=== PATIENT | male | born 1995 | race African-American/Black ===

== ENCOUNTER 2017-09-07 00:22 | Inpatient (IN) | payer MEDICAID, OTHER ==
--- NOTE | 2017-09-07 01:46 | ED ---
Altered Mental Status HPI - General Chief Complaint: Altered Mental Status Stated Complaint: altered mental status Time Seen by Provider: 09/07/17 00:54 Source: patient Mode of arrival: ambulatory Limitations: altered mental status - History of Present Illness Initial Comments: This patient is a 22-year-old man brought to be evaluated for what appears to be some delusional thought content. The patient is here with his and his [id number]. They relate that he has been describing seeing people who are not there, and describing people were working against him. In addition he states he had been up overnight, and he describes "pulling an all nighter," playing video games. The patient himself is without complaints. MD Complaint: other -: hour(s) Severity: moderate Consistency of Symptoms: constant - Related Data Previous Rx's Medication Instructions Recorded Ibuprofen [Motrin] 600 mg PO Q6HR PRN #20 tab 01/31/14 Allergies Allergy/AdvReac Type Severity Reaction Status Date / Time amoxicillin [Amoxicillin] AdvReac Unknown Verified 09/07/17 00:40 Penicillins AdvReac Unknown Verified 09/07/17 00:40 Review of Systems ROS Statement: Those systems with pertinent positive or pertinent negative responses have been documented in the HPI. ROS Other: All systems not noted in ROS Statement are negative. Constitutional: Denies: fever, chills, weakness Eyes: Denies: vision change Respiratory: Denies: cough, dyspnea Cardiovascular: Denies: chest pain, palpitations, syncope Gastrointestinal: Denies: abdominal pain, vomiting, diarrhea Genitourinary: Denies: dysuria Musculoskeletal: Denies: back pain Skin: Denies: rash Neurological: Denies: headache, weakness, numbness Psychiatric: Reports: anxiety, auditory hallucinations, visual hallucinations. Denies: homicidal thoughts, suicidal thoughts Past Medical History Past Medical History: No Reported History History of Any Multi-Drug Resistant Organisms: None Reported Past Surgical History: No Surgical Hx Reported Past Psychological History: No Psychological Hx Reported Smoking Status: Current every day smoker Past Alcohol Use History: Daily Past Drug Use History: Marijuana General Exam Limitations: altered mental status General appearance: alert, in no apparent distress Head exam: Present: atraumatic, normocephalic Eye exam: Present: normal appearance Neck exam: Present: normal inspection Respiratory exam: Present: normal lung sounds bilaterally. Absent: respiratory distress, wheezes, rales, rhonchi, stridor Cardiovascular Exam: Present: normal rhythm, tachycardia, normal heart sounds. Absent: systolic murmur, diastolic murmur, rubs, gallop GI/Abdominal exam: Present: soft. Absent: distended, tenderness, guarding, rebound, mass Extremities exam: Present: normal inspection, normal capillary refill. Absent: pedal edema, calf tenderness Back exam: Present: normal inspection. Absent: CVA tenderness (R), CVA tenderness (L) Neurological exam: Present: alert Psychiatric exam: Present: anxious, manic, other (Patient does display delusional thought content.). Absent: homicidal ideation, suicidal ideation Skin exam: Present: warm, dry, intact, normal color. Absent: rash Course Vital Signs 09/07/17 00:33 Temperature 98.4 F Pulse Rate 128 H Respiratory 22 Rate Blood Pressure 152/93 O2 Sat by Pulse 99 Oximetry Medical Decision Making - Lab Data Result diagrams: 09/07/17 01:10 09/07/17 01:10 Lab Results 09/07/17 09/07/17 09/07/17 Range/Units 01:10 01:10 01:30 WBC 13.1 H (3.8-10.6) k/uL RBC 5.49 (4.30-5.90) m/uL Hgb 15.6 (13.0-17.5) gm/dL Hct 46.6 (39.0-53.0) % MCV 84.9 (80.0-100.0) fL MCH 28.4 (25.0-35.0) pg MCHC 33.4 (31.0-37.0) g/dL RDW 13.2 (11.5-15.5) % Plt Count 242 (150-450) k/uL Neutrophils % 78 % Lymphocytes % 14 % Monocytes % 7 % Eosinophils % 1 % Basophils % 0 % Neutrophils # 10.3 H (1.3-7.7) k/uL Lymphocytes # 1.8 (1.0-4.8) k/uL Monocytes # 0.9 (0-1.0) k/uL Eosinophils # 0.1 (0-0.7) k/uL Basophils # 0.0 (0-0.2) k/uL Sodium 144 (137-145) mmol/L Potassium 4.5 (3.5-5.1) mmol/L Chloride 109 H (98-107) mmol/L Carbon Dioxide 22 (22-30) mmol/L Anion Gap 13 mmol/L BUN 19 (9-20) mg/dL Creatinine 0.80 (0.66-1.25) mg/dL Est GFR (CKD-EPI)AfAm >90 (>60 ml/min/1.73 sqM) Est GFR (CKD-EPI)NonAf >90 (>60 ml/min/1.73 sqM) Glucose 100 H (74-99) mg/dL Calcium 10.5 H (8.4-10.2) mg/dL Total Bilirubin 1.2 (0.2-1.3) mg/dL AST 35 (17-59) U/L ALT 31 (21-72) U/L Alkaline Phosphatase 77 (38-126) U/L Total Protein 8.4 H (6.3-8.2) g/dL Albumin 5.3 H (3.5-5.0) g/dL TSH 1.900 (0.465-4.680) mIU/L Urine Opiates Screen Not Detected (NotDetected) Ur Oxycodone Screen Not Detected (NotDetected) Urine Methadone Screen Not Detected (NotDetected) Ur Propoxyphene Screen Not Detected (NotDetected) Ur Barbiturates Screen Not Detected (NotDetected) U Tricyclic Antidepress Not Detected (NotDetected) Ur Phencyclidine Scrn Not Detected (NotDetected) Ur Amphetamines Screen Detected H (NotDetected) U Methamphetamines Scrn Detected H (NotDetected) U Benzodiazepines Scrn Not Detected (NotDetected) Urine Cocaine Screen Not Detected (NotDetected) U Marijuana (THC) Screen Detected H (NotDetected) Disposition Clinical Impression: Acute psychosis Disposition: ADMITTED IP TO THIS HOSP Condition: Fair Referrals: None,Stated [Primary Care Provider] - 1-2 days
[2017-09-07 01:52] LABS: Basophils % (A) 0 %; Eosinophils # (A) 0.1 k/uL (0-0.7); Eosinophils % (A) 1 %; HCT 46.6 % (39.0-53.0); HGB 15.6 gm/dL (13.0-17.5); Lymphocytes # (A) 1.8 k/uL (1.0-4.8); Lymphocytes % (A) 14 %; MCH 28.4 pg (25.0-35.0); MCHC 33.4 g/dL (31.0-37.0); MCV 84.9 fL (80.0-100.0); Mean Platelet Volume 7.3; Monocytes # (A) 0.9 k/uL (0-1.0); Monocytes % (A) 7 %; Neutrophils # (A) 10.3 k/uL (1.3-7.7); Neutrophils % (A) 78 %; Platelet Count 242 k/uL (150-450); RBC 5.49 m/uL (4.30-5.90); RDW 13.2 % (11.5-15.5); WBC 13.1 k/uL (3.8-10.6)
[2017-09-07 01:56] LABS: ALT 31 U/L (21-72); AST 35 U/L (17-59); Albumin 5.3 g/dL (3.5-5.0); Alkaline Phosphatase 77 U/L (38-126); Anion Gap 13 mmol/L; Blood Urea Nitrogen 19 mg/dL (9-20); Calcium 10.5 mg/dL (8.4-10.2); Carbon Dioxide 22 mmol/L (22-30); Chloride 109 mmol/L (98-107); Glucose 100 mg/dL (74-99); Potassium 4.5 mmol/L (3.5-5.1); Sodium 144 mmol/L (137-145); Total Bilirubin 1.2 mg/dL (0.2-1.3); Total Protein 8.4 g/dL (6.3-8.2)
[2017-09-07 02:00] LABS: Amphetamine Screen,Urine Detected (NotDetected); Barbiturate Screen,Urine Not Detected (NotDetected); Benzodiazepines Screen,Urine Not Detected (NotDetected); Cocaine Screen,Urine Not Detected (NotDetected); Methadone Screen, Urine Not Detected (NotDetected); Opiate Screen,Urine Not Detected (NotDetected); Oxycodone Screen, Urine Not Detected (NotDetected); Phencyclidine Screen,Urine Not Detected (NotDetected); Tricyclic Antidepressant,Urine Not Detected (NotDetected); Urn Cannabinoid Scrn Detected (NotDetected)
[2017-09-07] MEDS ORDERED: ZIPRASIDONE 20 MG CAP PO STA (02:22)
[2017-09-07] MEDS ORDERED: LORazepam 1 MG TAB PO STA (03:43)
[2017-09-07] MEDS ORDERED: MAGNESIUM HYDROXIDE 2,400 MG/10 ML CUP PO PRN (05:11)
[2017-09-07] MEDS ORDERED: ACETAMINOPHEN TAB 325 MG TAB PO PRN (05:11)
[2017-09-07] MEDS ORDERED: MAG HYDROX/AL HYDROX/SIMETH 30 ML CUP PO PRN (05:11)
[2017-09-07] MEDS ORDERED: ZIPRASIDONE 20 MG VIAL IM PRN (05:11)
[2017-09-07] MEDS ORDERED: LORazepam 2 MG/ML INJ IM PRN (05:13)
[2017-09-07] MEDS ORDERED: SODIUM CHLORIDE 0.9% 2,000 ML IV ONE (11:28)
[2017-09-07] MEDS ORDERED: SODIUM CHLORIDE 0.9% 1,000 ML IV SCH (11:30)
--- NOTE | 2017-09-07 11:31 | P.HPMEDMHU ---
History of Present Illness H&P Date: 09/07/17 The patient is a 32-year-old -Scott[place] male that was brought into the ER by his partner and her mother with increasing paranoia and psychosis. Apparently the patient is increasingly agitated in the ER point to people that were not there and saying that the police was out to get him, the patient had other visual hallucinations and on presentation was diaphoretic restless anxious disorganized manic with poor impulse control. The patient does report snoring mass 2 days ago but denied having a drug problem. For my exam the patient is a little less agitated and manic and is able to answer questions to the best of his knowledge, he reports a history of enlarged thyroid and was reportedly taking steroids intermittently for this. He denies any other medical issues denies any chest pain or shortness of breath but does report a nonproductive cough for 2 days he denies any fevers chills or night sweats. In the ER the patient had a conference a workup, but did not have a chest x-ray , his UDS was positive for methamphetamine and THC, he was also noted to have a leukocytosis of 13.1 Past Medical History Past Medical History: No Reported History History of Any Multi-Drug Resistant Organisms: None Reported Past Surgical History: No Surgical Hx Reported Past Psychological History: No Psychological Hx Reported Smoking Status: Current every day smoker Past Alcohol Use History: Daily Past Drug Use History: Marijuana Medications and Allergies Home Medications Medication Instructions Recorded Confirmed Type Ibuprofen [Motrin] 600 mg PO Q6HR PRN #20 tab 01/31/14 Rx Allergies Allergy/AdvReac Type Severity Reaction Status Date / Time amoxicillin [Amoxicillin] AdvReac Unknown Verified 09/07/17 00:40 Penicillins AdvReac Unknown Verified 09/07/17 00:40 Physical Exam Vitals: Vital Signs Temp Pulse Pulse Resp BP BP Pulse Ox 09/07/17 05:34 97.6 F 109 H 18 129/60 94 L 09/07/17 05:09 116 H 18 100 09/07/17 05:01 97.9 F 130 H 18 139/62 94 L 09/07/17 00:33 98.4 F 128 H 22 152/93 99 Intake and Output 09/06/17 09/07/17 09/07/17 22:59 06:59 14:59 Other: Weight 86.183 kg 82.7 kg Constitutional: No acute distress, agitated, bloodshot eyes, diaphoretic Eyes: Anicteric sclerae, moist conjunctiva, no lid-lag, PERRLA ENMT: NC/AT,Oropharynx clear, no erythema, exudates Neck:Supple, FROM, no masses, or JVD, No carotid bruits; No thyromegaly Lungs: Clear to auscultation, Clear to percussion, Normal respiratory effort, no accessory muscle use Cardiovascular: Regular rhythm tachycardic, No murmurs, gallops, or rubs no peripheral edema Abdominal: Soft Nontender, nom distended, no guarding, no rebound or rigidity, Normoactive bowel sounds No hepatomegaly, No splenomegaly, No palpable mass No abdominal wall hernia noted Skin: Normal temperature, tone, texture, turgor, No induration No subcutaneous nodules, No rash, lesions, No ulcers Extremities:No digital cyanosis No clubbing, Pedal pulses intact and symmetrical Radial pulses intact and symmetrical Normal gait and station, No calf tenderness Psychiatric: Oriented to place and time and person, poor judgment, impulsive, fidgety agitated, disheveled, reporting auditory or visual hallucinations Neuro: Muscles Strength 5/5 in all 4 extremities, Sensation to light touch grossly present throughout, Cranial nerves II-XII grossly intact. No focal sensory deficits Cranial Nerve Examination - Cranial Nerves Cranial Nerve II- Optic: Intact Cranial Nerve III- Oculomotor: Intact Cranial Nerve IV- Trochlear: Intact Cranial Nerve V- Trigeminal: Intact Cranial Nerve - Abducens: Intact Cranial Nerve VII- Facial: Intact Cranial Nerve VIII- Auditory: Intact Cranial Nerve IX- Glossopharyngeal: Intact Cranial Nerve X- Vagus: Intact Cranial Nerve XI- Accessory: Intact Cranial Nerve XII- Hypoglossal: Intact Results CBC & Chem 7: 09/07/17 01:10 09/07/17 01:10 Labs: Abnormal Lab Results - Last 24 Hours (Table) 09/07/17 09/07/17 09/07/17 Range/Units 01:10 01:10 01:30 WBC 13.1 H (3.8-10.6) k/uL Neutrophils # 10.3 H (1.3-7.7) k/uL Chloride 109 H (98-107) mmol/L Glucose 100 H (74-99) mg/dL Calcium 10.5 H (8.4-10.2) mg/dL Total Protein 8.4 H (6.3-8.2) g/dL Albumin 5.3 H (3.5-5.0) g/dL Ur Amphetamines Screen Detected H (NotDetected) U Methamphetamines Scrn Detected H (NotDetected) U Marijuana (THC) Screen Detected H (NotDetected) Assessment and Plan (1) Acute psychosis Current Visit: Yes Status: Acute Code(s): F23 - BRIEF PSYCHOTIC DISORDER SNOMED Code(s): 40335013 (2) Methamphetamine intoxication Current Visit: Yes Status: Acute Code(s): F15.929 - OTHER STIMULANT USE, UNSP WITH INTOXICATION, UNSPECIFIED SNOMED Code(s): 13118541267724084 (3) Leukocytosis Current Visit: Yes Status: Acute Code(s): D72.829 - ELEVATED WHITE BLOOD CELL COUNT, UNSPECIFIED SNOMED Code(s): 621749829 (4) Cough Current Visit: Yes Status: Acute Code(s): R05 - COUGH SNOMED Code(s): 11904983 Plan: The patient is admitted to the mental health unit with acute psychosis, etienne and agitation likely triggered by methamphetamine intoxication. We will plan to the for to primary psychiatric team regarding ongoing psychotropic medications, monitoring and possible CBT therapy. Medically speaking the patient appears stable, but is clearly showing signs of methamphetamine toxemia as he is tachycardic and diaphoretic. We'll plan to check a chest x-ray to rule out pneumonia as a patient does have a mild leukocytosis (which could also be secondary to methamphetamine use ). We'll start the patient on fluids and recheck his labs tomorrow. I appreciate the opportunity to be involved ongoing care of this patient . For further questions or concerns please do not hesitate to contact this time patient team
--- NOTE | 2017-09-07 12:51 | P.HP ---
Psychiatric H&P - . H&P Date: 09/07/17 History & Physical: Allergies Allergy/AdvReac Type Severity Reaction Status Date / Time amoxicillin [Amoxicillin] AdvReac Unknown Verified 09/07/17 00:40 Penicillins AdvReac Unknown Verified 09/07/17 00:40 Vital Signs Temp 97.6 F 09/07/17 05:34 Pulse 109 H 09/07/17 05:34 Resp 18 09/07/17 05:34 BP 129/60 09/07/17 05:34 Pulse Ox 94 L 09/07/17 05:34 Intake & Output 09/06/17 09/07/17 09/07/17 18:59 06:59 18:59 Weight 86.183 kg 82.7 kg Laboratory Last Values WBC 13.1 k/uL (3.8-10.6) H 09/07/17 01:10 RBC 5.49 m/uL (4.30-5.90) 09/07/17 01:10 Hgb 15.6 gm/dL (13.0-17.5) 09/07/17 01:10 Hct 46.6 % (39.0-53.0) 09/07/17 01:10 MCV 84.9 fL (80.0-100.0) 09/07/17 01:10 MCH 28.4 pg (25.0-35.0) 09/07/17 01:10 MCHC 33.4 g/dL (31.0-37.0) 09/07/17 01:10 RDW 13.2 % (11.5-15.5) 09/07/17 01:10 Plt Count 242 k/uL (150-450) 09/07/17 01:10 Neutrophils % 78 % 09/07/17 01:10 Lymphocytes % 14 % 09/07/17 01:10 Monocytes % 7 % 09/07/17 01:10 Eosinophils % 1 % 09/07/17 01:10 Basophils % 0 % 09/07/17 01:10 Neutrophils # 10.3 k/uL (1.3-7.7) H 09/07/17 01:10 Lymphocytes # 1.8 k/uL (1.0-4.8) 09/07/17 01:10 Monocytes # 0.9 k/uL (0-1.0) 09/07/17 01:10 Eosinophils # 0.1 k/uL (0-0.7) 09/07/17 01:10 Basophils # 0.0 k/uL (0-0.2) 09/07/17 01:10 Sodium 144 mmol/L (137-145) 09/07/17 01:10 Potassium 4.5 mmol/L (3.5-5.1) 09/07/17 01:10 Chloride 109 mmol/L (98-107) H 09/07/17 01:10 Carbon Dioxide 22 mmol/L (22-30) 09/07/17 01:10 Anion Gap 13 mmol/L 09/07/17 01:10 BUN 19 mg/dL (9-20) 09/07/17 01:10 Creatinine 0.80 mg/dL (0.66-1.25) 09/07/17 01:10 Est GFR (CKD-EPI)AfAm >90 (>60 ml/min/1.73 sqM) 09/07/17 01:10 Est GFR (CKD-EPI)NonAf >90 (>60 ml/min/1.73 sqM) 09/07/17 01:10 Glucose 100 mg/dL (74-99) H 09/07/17 01:10 Calcium 10.5 mg/dL (8.4-10.2) H 09/07/17 01:10 Total Bilirubin 1.2 mg/dL (0.2-1.3) 09/07/17 01:10 AST 35 U/L (17-59) 09/07/17 01:10 ALT 31 U/L (21-72) 09/07/17 01:10 Alkaline Phosphatase 77 U/L (38-126) 09/07/17 01:10 Total Protein 8.4 g/dL (6.3-8.2) H 09/07/17 01:10 Albumin 5.3 g/dL (3.5-5.0) H 09/07/17 01:10 TSH 1.900 mIU/L (0.465-4.680) 09/07/17 01:10 Urine Opiates Screen Not Detected (NotDetected) 09/07/17 01:30 Ur Oxycodone Screen Not Detected (NotDetected) 09/07/17 01:30 Urine Methadone Screen Not Detected (NotDetected) 09/07/17 01:30 Ur Propoxyphene Screen Not Detected (NotDetected) 09/07/17 01:30 Ur Barbiturates Screen Not Detected (NotDetected) 09/07/17 01:30 U Tricyclic Antidepress Not Detected (NotDetected) 09/07/17 01:30 Ur Phencyclidine Scrn Not Detected (NotDetected) 09/07/17 01:30 Ur Amphetamines Screen Detected (NotDetected) H 09/07/17 01:30 U Methamphetamines Scrn Detected (NotDetected) H 09/07/17 01:30 U Benzodiazepines Scrn Not Detected (NotDetected) 09/07/17 01:30 Urine Cocaine Screen Not Detected (NotDetected) 09/07/17 01:30 U Marijuana (THC) Screen Detected (NotDetected) H 09/07/17 01:30 09/07/17 12:48 Identifying Information 22 year old male, single has one year, 2month old daughter. He lives with his new girlfriend in an apartment. 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 Chief complaint My ex-girlfriends mother tricked me into coming to the hospital History of presenting illness Patient was petitioned by his ex-friends mother. Per petition patient was seeing things that are not there, became so paranoid that he was climbing trees. Patients father states patient is convinced people were following him and watching him which was not true. Patient states he was passenger in the car and his ex-girlfriends mother was driving the car. He claims to have seen people hiding in the bushes dressed like army personnel. He stated that those people were camouflaged, carrying rifles and were following him every where he goes. He reports seeing them through the window of his room. He also reports seeing their shadows inside his room in the hospital. He currently states this was all a mistake and his ex-girlfriends mother felt he was high on drugs and was seeing things. He says he is not sick and is not seeing things. He says he has a job lined up at a [employer] and is supposed to go to his job tomorrow. He says he needs money and was wondering if he could be released today. He stated he did not want to be hospitalized. Reportedly he ran out of the emergency room yesterday and security was able to trace him and brought him back. Per staff he jumped into the river after he ran out of the emergency room. Patient reports he is currently on a hernandez. He is concerned that he might be taken [facility] for violating his hernandez. He claims to have snorted two lines of methamphetamine three days ago. He states this is the second time he had used meth. He states his first use of meth was an year ago. He also reports to have smoked marijuana three days ago. He denies current auditory hallucinations. He reports feeling sad and hopeless about being in the hospital. He is also concerned about not being able to go his job tomorrow. He denies current suicidal or homicidal ideations. He reports good sleep and appetite. He denies symptoms of etienne. Past psychiatric history None reported Substance use history Reports use of marijuana from the age of 11yrs. He reports smoking two joints of marijuana/day twice a week. His last use was three days ago. He reports to have use methamphetamine twice in his entire life, first time at the age of 20 and recently three days ago. Legal problems [facility] 2016 with domestic assault charges. On [place] hernandez currently. Family psychiatric treatment history Denies Medical history None reported. Allergies Pencillin and amoxicillin Social history Born in [place], [place]. Raised by grandparents. He states his parents were horrible. He states his dad was never around and claims his mother is currently in penitentiary. He denies childhood history of abuse. He has five sisters and two brothers. Reports to have completed highschool. He reports to have attended two years of college in [place]. He claims to have studied commercial diving. He reports to have worked as a commercial loan processor for three years in [facility] [employer]. He claims to have lived in [facility]. He states he moved back to [place] in December 2016 to be closer to his daughter. Mental status exam 22 year old male. He is dressed in hospital gown. He appeared in fair grooming and hygiene. He maintains good eye contact. No abnormal movements noted. His speech and thought process are goal directed. His mood is reported as sad and affect appropriate. He is paranoid and has visual hallucinations. He denies auditory hallucinations. He is alert and oriented X 4. He denies current suicidal or homicidal ideations. His insight and judgment are poor. Diagnosis Methamphtamine abuse, methamphetamine induced psychosis Marijuana abuse Plan 22-year-old male admitted through emergency department for acute psychosis. He was admitted on a petition and clinical cert. Medicine consult for initial history and physical examination psychosocial evaluation. Monitor for symptoms without medications. If his symptoms doesnt subside consider starting antipsychotics tomorrow. Will complete second clinical cert today will receive milieu therapy group therapy individual therapy occupational therapy recreational therapy and psychoeducation Treatment goals: Monitor for symptoms/progress Social work to assist with discharge Insight improvement and development of better coping skills Substance use counseling/Groups Treatment goals: will continue to be free of symptoms
--- NOTE | 2017-09-07 14:09 | XR ---
EXAMINATION TYPE: XR chest 2V DATE OF EXAM: 09/07/2017 HISTORY: cough and leukocytosis. REFERENCE: Previous study dated 11/05/2012. FINDINGS: The lungs are clear. Pleural spaces are clear. The heart is not enlarged. IMPRESSION: NORMAL CHEST.
[2017-09-07] MEDS: LORazepam 1 MG TAB PO PRN (15:36)
[2017-09-07] MEDS ORDERED: WATER FOR INJECTION, STERILE 10 ML IV ONE ×2 (17:33→19:57)
[2017-09-07] MEDS ORDERED: ZIPRASIDONE 20 MG VIAL IM ONE ×2 (17:33→19:57)
--- NOTE | 2017-09-08 10:05 | P.PN ---
Progress Note - Text Interval history: The patient is found in his room he follows me to an interview room. The psychiatric evaluation note was reviewed. The patient states that he was tricked into coming to the mental health unit and was petition by his girlfriend's mother. He states he does not need to be here is quite upset that this will cause him significant financial distress. In reviewing the charting the patient felt that he was being tracked by the drug task force dressed as personnel. He states even yesterday there were to people on this mental health unit dressed in fatigues. Upon presentation to the hospital he did have methamphetamine and marijuana in his system. He states he does not use this often. Mental status exam: The patient is an -[place] male appearing his stated age. He seated calmly in the chair he is dressed in T-shirt and shorts. He has a large scar visible on his right knee. He reports his mood as stressed. He continues to state that he was being tracked by the drug task force and feels that there may have been personnel on this mental health unit as well. He is reporting no suicidal or homicidal thoughts. Thought process is circumstantial at times infrequently tangential. He demonstrates no verbal or physical aggressiveness. His affect is dysphoric but he is not tearful. He is oriented to person place and date. He demonstrates no abnormal involuntary movements. He is endorsing no auditory or visual hallucinations. It is clear that he is trying to minimize symptoms to facilitate a discharge. Plan: It would appear that the patient's presenting with methamphetamine induced psychosis. I will confer with the treatment team regarding any further collateral information. We will monitor him for safety. We will monitor for need of a prescribed antipsychotic. He is encouraged to participate in the milieu. Vital signs reviewed. He does have a history of alcohol use and we are monitoring for withdrawal symptoms.
[2017-09-08] MEDS: LORazepam 1 MG TAB PO PRN (22:27)
[2017-09-09] MEDS: LORazepam 1 MG TAB PO PRN ×2 (10:44→20:50)
--- NOTE | 2017-09-09 10:59 | P.PN ---
Progress Note - Text Interval history: The patient is found in his room he follows me to an interview room. He reports that he slept most of the day yesterday and that was helpful. He feels that his symptoms of psychosis are beginning to resolve. He feels that the methamphetamine likely induced his current symptoms. Staff reported that he only attended 2 groups yesterday. It appeared last evening he may have still been hallucinating as he was looking out of the window for police or personnel. Mental status exam: The patient is alert he seated calmly he is cooperative. He reports no acute symptoms of psychosis this morning. He feels that his thought process is becoming more linear. He denies having any hallucinations at this time. He feels safe on the mental health unit. He has spontaneous speech that is nonpressured. He demonstrates no verbal or physical aggressiveness. He is reporting no suicidal or homicidal ideation. He is following the conversation better compared to yesterday. Insight and judgment improving. Plan: The patient will be observed for another 24 hours. We anticipate discharging him tomorrow if he demonstrates sufficient clinical improvement/ stability. Vital signs reviewed. He is encouraged to fully participate in the milieu.
[2017-09-10 07:14] VITALS: BP 165/79; PULSE 81; RESP 18; TEMP 98
--- NOTE | 2017-09-10 09:22 | P.DS ---
Providers Date of admission: 09/07/17 05:03 Expected date of discharge: 09/10/17 Attending physician: Riki Gleason Consults: 09/07/17 05:11 Consult Physician Routine Consulting Provider: Bernarda Perez Consult Reason/Comments: Medical managment Do you want consulting provider notified?: Yes Primary care physician: Stated None - Discharge Diagnosis(es) (1) Methamphetamine-induced psychotic disorder Current Visit: Yes Status: Acute Priority: High (2) Methamphetamine use disorder, moderate Current Visit: Yes Status: Acute Priority: High (3) Cannabis use disorder, moderate, dependence Current Visit: Yes Status: Acute Priority: Medium Hospital Course: This patient is a 22-year-old -[place] male who was admitted to the mental health unit with acute psychosis in the context of using methamphetamine. He was petition by his ex-girlfriend's mother as the patient was acutely paranoid and was demonstrating bizarre behavior. The patient felt that he was being followed and felt unsafe. For full details please refer to the psychiatric evaluation dictated 09/07/2017. Summary of hospital course: The patient was admitted to the mental health unit in voluntarily. A second clinical certificate was completed. A deferral conference was held and the patient did ultimately defer. He did not wish to have psychiatric medication prescribed. During the course of his stay his psychosis resolved. He was able to sleep and appetite normalized. Thought process became more linear and he no longer demonstrated signs of psychosis. He was seen by internal medicine for routine history and physical exam. The patient participated minimally in groups. He demonstrated no agitated behavior. We discussed his use of substances he does not feel that he requires inpatient chemical dependency treatment and does not wish to have any medication prescribed to address his substance use. Mental status exam: The patient is alert he seated calmly. Today he is dressed in hospital attire. Hygiene and grooming are good. He is pleasant and cooperative. Speech is fluent spontaneous nonpressured. Thought process is linear he demonstrates no tangential thinking loose associations or flight of ideas. He is reporting no auditory or visual hallucinations he endorses no specific delusions. There is no observed evidence of psychosis. Insight and judgment improved. He demonstrates no verbal or physical aggressiveness he demonstrates no abnormal involuntary movements. He remains oriented to person place and date. He is able to demonstrate an appropriate range of affect. He denies having any suicidal or homicidal ideation intent or plan. Impressions 1. Methamphetamine induced psychotic disorder, methamphetamine use disorder, cannabis use disorder 2. Legal interaction with court date on October 08 Plan: The patient will be discharged from the mental health unit today. He no longer demonstrate symptoms of psychosis. He is capable of meeting his activities of daily living, he has not reported any thoughts of harming himself or others. He does not wish to take a psychotropic medication and he does not require one at this time. He has signed a deferral agreement and we explained the implications of that decision. He is instructed to abstain from any use of alcohol marijuana or illicit drugs as they will elevate his safety risk. There is no imminent safety risk he is appropriate for transfer back to outpatient care. Social work will arrange his outpatient follow-up. Again he does not wish to participate in inpatient chemical dependency treatment and does not wish to have medication prescribed to address substance use. He is instructed to return to the hospital any acute safety concerns. Patient Condition at Discharge: Stable Plan - Discharge Summary New Discharge Prescriptions: Discontinued Ibuprofen [Motrin] 600 mg PO Q6HR PRN #20 tab PRN Reason: Pain Follow up Appointment(s)/Referral(s): None,Stated [Primary Care Provider] - 1-2 days
== END 2017-09-10 11:37 | disposition home or self-care (01) | DRG 897 ==
LOC: EC 00:22 → 3MHU 05:03
PROVIDERS: ADMIT Psychiatry & Neurology Psychiatry; ATTEND Psychiatry & Neurology Psychiatry
DX: F15.259 Other stimulant dependence with stimulant-induced psychotic disorder, unspecified (principal); F12.20 Cannabis dependence, uncomplicated; F17.200 Nicotine dependence, unspecified, uncomplicated; Z65.3 Problems related to other legal circumstances; D72.829 Elevated white blood cell count, unspecified; R05 Cough; Z88.0 Allergy status to penicillin
CPT/HCPCS: 36415; 71046; 80053; 80306; 82075; 84443; 85025; 93005; 99285

== ENCOUNTER 2017-12-03 08:25 | Inpatient (IN) | payer MEDICAID, OTHER ==
--- NOTE | 2017-12-03 09:02 | ED ---
Psych HPI - General Chief Complaint: Psychiatric Symptoms Stated Complaint: altered mental status Time Seen by Provider: 12/03/17 08:28 Source: patient, EMS, RN notes reviewed Mode of arrival: EMS Limitations: no limitations - History of Present Illness Initial Comments: 22-year-old male presents emergency Department via EMS for psychiatric evaluation. Patient reportedly uses meth 2 days ago is still paranoid, hallucinating. Patient is being petition by father secondary to his drug abuse. Patient has no complaints he denies suicidal homicidal ideation. Denies any alcohol abuse. He does admit to marijuana use also. Patient has no physical complaints including chest pain, shortness breath, headache, dizziness , nausea vomiting diarrhea constipation. Patient states he has never been admitted for drug abuse in the past. - Related Data Home Medications Medication Instructions Recorded Confirmed Unable To Assess [Unable to Assess] 12/03/17 12/03/17 Allergies Allergy/AdvReac Type Severity Reaction Status Date / Time amoxicillin [Amoxicillin] AdvReac Unknown Verified 09/07/17 00:40 Penicillins AdvReac Unknown Verified 09/07/17 00:40 Review of Systems ROS Statement: Those systems with pertinent positive or pertinent negative responses have been documented in the HPI. ROS Other: All systems not noted in ROS Statement are negative. Past Medical History Past Medical History: No Reported History History of Any Multi-Drug Resistant Organisms: None Reported Past Surgical History: No Surgical Hx Reported Past Psychological History: No Psychological Hx Reported Smoking Status: Current every day smoker Past Alcohol Use History: Daily Past Drug Use History: Marijuana General Exam Limitations: altered mental status General appearance: alert, in no apparent distress Head exam: Present: atraumatic, normocephalic, normal inspection Eye exam: Present: normal appearance, PERRL, EOMI. Absent: scleral icterus, conjunctival injection, periorbital swelling ENT exam: Present: normal exam, normal oropharynx, mucous membranes moist, TM's normal bilaterally, normal external ear exam Neck exam: Present: normal inspection, full ROM. Absent: tenderness, meningismus, lymphadenopathy Respiratory exam: Present: normal lung sounds bilaterally. Absent: respiratory distress, wheezes, rales, rhonchi, stridor Cardiovascular Exam: Present: regular rate, normal rhythm, normal heart sounds. Absent: systolic murmur, diastolic murmur, rubs, gallop, clicks GI/Abdominal exam: Present: soft, normal bowel sounds. Absent: distended, tenderness, guarding, rebound, rigid Neurological exam: Present: alert, oriented X3, CN II-XII intact, reflexes normal. Absent: motor sensory deficit Psychiatric exam: Present: anxious, other (Patient is paranoid) Skin exam: Present: warm, dry, intact, normal color. Absent: rash Course Vital Signs 12/03/17 12/03/17 08:50 09:00 Temperature 98.1 F Pulse Rate 80 Respiratory 20 Rate Blood Pressure 155/122 O2 Sat by Pulse 96 Oximetry Medical Decision Making - Lab Data Lab Results 12/03/17 Range/Units 11:34 Urine Opiates Screen Not Detected (NotDetected) Ur Oxycodone Screen Not Detected (NotDetected) Urine Methadone Screen Not Detected (NotDetected) Ur Propoxyphene Screen Not Detected (NotDetected) Ur Barbiturates Screen Not Detected (NotDetected) U Tricyclic Antidepress Not Detected (NotDetected) Ur Phencyclidine Scrn Not Detected (NotDetected) Ur Amphetamines Screen Detected H (NotDetected) U Methamphetamines Scrn Detected H (NotDetected) U Benzodiazepines Scrn Not Detected (NotDetected) Urine Cocaine Screen Not Detected (NotDetected) U Marijuana (THC) Screen Detected H (NotDetected) Disposition Clinical Impression: Methamphetamine use disorder, moderate, Acute psychosis Disposition: TRANSFER TO PSYCH HOSP/UNIT Condition: Stable Referrals: None,Stated [Primary Care Provider] - 1-2 days
[2017-12-03] MEDS ORDERED: LORazepam 2 MG/ML INJ IM STA (11:33)
[2017-12-03] MEDS ORDERED: ZIPRASIDONE 20 MG VIAL IM STA (11:33)
[2017-12-03 11:53] LABS: Amphetamine Screen,Urine Detected (NotDetected); Barbiturate Screen,Urine Not Detected (NotDetected); Benzodiazepines Screen,Urine Not Detected (NotDetected); Cocaine Screen,Urine Not Detected (NotDetected); Methadone Screen, Urine Not Detected (NotDetected); Opiate Screen,Urine Not Detected (NotDetected); Oxycodone Screen, Urine Not Detected (NotDetected); Phencyclidine Screen,Urine Not Detected (NotDetected); Tricyclic Antidepressant,Urine Not Detected (NotDetected); Urn Cannabinoid Scrn Detected (NotDetected)
[2017-12-03] MEDS ORDERED: MAG HYDROX/AL HYDROX/SIMETH 30 ML CUP PO PRN (12:17)
[2017-12-03] MEDS ORDERED: ACETAMINOPHEN TAB 325 MG TAB PO PRN (12:17)
[2017-12-03] MEDS ORDERED: MAGNESIUM HYDROXIDE 2,400 MG/10 ML CUP PO PRN (12:17)
[2017-12-03 14:37] VITALS: BMI 25.4
--- NOTE | 2017-12-03 14:39 | P.HP ---
Psychiatric H&P - . H&P Date: 12/03/17 History & Physical: IDENTIFYING DATA: The patient is a 22-year-old -[place] male brought to the emergency room by the police and his father. HISTORY OF PRESENT ILLNESS: According to his father the patient called the police stating that he was being doped. The police went to his father's home and they did not find drugs. Due to his agitation and paranoia the police brought him to the emergency room. In the emergency room he was agitated and paranoid. He attempted to elope from the emergency room and his management required intramuscular Ativan and Geodon. He presented to unit involuntarily. He was markedly sedated and unable to participate in an assessment. He was laying in bed and would open his eyes briefly when we shook him awake. According to information from medical record he has a history of methamphetamine use disorder. His urine drug screen was positive for amphetamines, methamphetamines and marijuana. PAST PSYCHIATRIC HISTORY: This is second admission to our psychiatric unit; the last was in August 2017. He presented with acute onset of paranoia and agitation in the context of abuse of methamphetamine. That admission was involuntary and he deferred the probate hearing. 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 No psychotropic medications were prescribed at discharge. PAST MEDICAL HISTORY: He has no history of major medical illnesses. ALLERGIES: Amoxicillin, penicillins. SUBSTANCE USE HISTORY: According to information from the prior admission he has a history of marijuana use since she he was 11 years old. He alleged that he used methamphetamine twice prior to the last admission. FAMILY PSYCHIATRIC/SUBSTANCE USE HISTORY: There is no family history of mental health disorders. LEGAL HISTORY: He was in long term in August 2016 for charges of domestic assault. SOCIAL HISTORY: His born in [facility] and raised by his grandparents. His mother is in fci. He denied a history of childhood abuse. He has 5 sisters and 2 brothers. He graduated from high school. He lived in [place] until December 2016 to be closer to his daughter. MENTAL STATUS EXAM: He presented as a markedly sedated young -[place] male who would not cooperate with the psychiatric assessment. STRENGTHS: Stable housing. WEAKNESSES: Substance use disorder. IMPRESSION: He is a 22-year-old [place] male admitted to the psychiatric unit with acute onset of paranoia and agitation the context of use of methamphetamine. This is the second admission for same within the last 12 months. He is markedly sedated and uncooperative. He should be treated on an inpatient basis with combination of psychopharmacology and multimodal therapy. We will submit a demand for hearing to proceed with involuntary hospitalization. PRINCIPLE DIAGNOSIS: Methamphetamine induced psychotic disorder, methamphetamine use disorder RECOMMENDATION: Admit to the psychiatric unit. Safety precautions. Lorazepam and Geodon IM when necessary for agitation. Obtain collateral information from family. Consult medicine for initial physical exam and medical history. Reassess when he is less sedated. 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 Encourage participation as tolerated in therapeutic groups and activities. Evaluate clinical status response to treatment on a daily basis. Allergies Allergy/AdvReac Type Severity Reaction Status Date / Time amoxicillin [Amoxicillin] AdvReac Unknown Verified 09/07/17 00:40 Penicillins AdvReac Unknown Verified 09/07/17 00:40 Vital Signs Temp 98.0 F 12/03/17 14:12 Pulse 109 H 12/03/17 14:12 Resp 18 12/03/17 14:12 BP 111/75 12/03/17 14:12 Pulse Ox 99 12/03/17 12:20 Intake & Output 12/02/17 12/03/17 12/03/17 18:59 06:59 18:59 Weight 85.275 kg Laboratory Last Values Urine Opiates Screen Not Detected (NotDetected) 12/03/17 11:34 Ur Oxycodone Screen Not Detected (NotDetected) 12/03/17 11:34 Urine Methadone Screen Not Detected (NotDetected) 12/03/17 11:34 Ur Propoxyphene Screen Not Detected (NotDetected) 12/03/17 11:34 Ur Barbiturates Screen Not Detected (NotDetected) 12/03/17 11:34 U Tricyclic Antidepress Not Detected (NotDetected) 12/03/17 11:34 Ur Phencyclidine Scrn Not Detected (NotDetected) 12/03/17 11:34 Ur Amphetamines Screen Detected (NotDetected) H 12/03/17 11:34 U Methamphetamines Scrn Detected (NotDetected) H 12/03/17 11:34 U Benzodiazepines Scrn Not Detected (NotDetected) 12/03/17 11:34 Urine Cocaine Screen Not Detected (NotDetected) 12/03/17 11:34 U Marijuana (THC) Screen Detected (NotDetected) H 12/03/17 11:34 12/03/17 14:25
--- NOTE | 2017-12-03 17:59 | P.HPMEDMHU ---
History of Present Illness H&P Date: 12/03/17 Chief Complaint: hallucination Patient is a 22-year-old male with a past medical history of chronic methamphetamine abuse, tobacco abuse, and possible alcohol abuse who presented to the ER with hallucinations. He was petitioned by his family is concern for his drug abuse. He received Geodon and Ativan in the ER and was subsequently admitted to the mental health unit. Patient seen and examined at bedside. He is very lethargic after receiving Ativan and Geodon. He falls asleep frequently. He denies any recent cough, cold, fever, flu, nausea, or vomiting. He is unclear as whether he is having diarrhea or constipation. Exam is very limited secondary to patient's lethargy and repeatedly needed to wake patient up, thorough record review preformed including records from ED and nursing notes. He states he is feeling better than when he came in. Review of Systems ROS unobtainable: due to mental status Past Medical History Past Medical History: No Reported History History of Any Multi-Drug Resistant Organisms: None Reported Past Surgical History: No Surgical Hx Reported Past Anesthesia/Blood Transfusion Reactions: No Reported Reaction Smoking Status: Current every day smoker Past Drug Use History: Methamphetamine Additional History: Petitioned by father due to drug use Medications and Allergies Home Medications Medication Instructions Recorded Confirmed Type No Known Home Medications 12/03/17 12/03/17 History Allergies Allergy/AdvReac Type Severity Reaction Status Date / Time amoxicillin [Amoxicillin] AdvReac Unknown Verified 09/07/17 00:40 Penicillins AdvReac Unknown Verified 09/07/17 00:40 Physical Exam Osteopathic Statement: *. No significant issues noted on an osteopathic structural exam other than those noted in the History and Physical/Consult. Vitals: Vital Signs Temp Pulse Pulse Resp BP BP Pulse Ox 12/03/17 14:29 98.0 F 109 H 20 111/75 12/03/17 14:12 98.0 F 109 H 18 111/75 12/03/17 12:20 98.0 F 80 18 124/74 99 12/03/17 09:00 98.1 F 12/03/17 08:50 80 20 155/122 96 Intake and Output 12/03/17 12/03/17 12/03/17 06:59 14:59 22:59 Other: Weight 82.611 kg General: non toxic, lethargic, appears at stated age, normal weight Derm: no unusual rashes/lesions no unusual ecchymoses, warm, dry Head: atraumatic, normocephalic, symmetric Eyes: EOMI, no lid lag, anicteric sclera, pupils equal round reactive to light ENT: Nose and ears atraumatic, no thrush, no pharyngeal erythema Neck: No thyromegaly, no cervical lymphadenopathy, trachea midline, supple Mouth: no lip lesion, mucus membranes moist Cardiovascular: S1S2 reg, no murmur, positive posterior tibial pulse bilateral, no edema, capillary refill less than 2 seconds Lungs: Decreased breath sounds bilateral bases, no rhonchi, no rales , no accessory muscle use Abdominal: soft, nontender to palpation, no guarding, no appreciable organomegaly, normal bowel sounds Ext: no gross muscle atrophy, muscle strength 5 out of 5 in all 4 extremities grossly, no contractures, Neuro: CN II-XI grossly intact, light touch intact all 4 extremities, finger to nose within normal limits, Psych: Alert, oriented, lethargic Cranial Nerve Examination - Cranial Nerves Cranial Nerve II- Optic: Intact Cranial Nerve III- Oculomotor: Intact Cranial Nerve IV- Trochlear: Intact Cranial Nerve V- Trigeminal: Intact Cranial Nerve - Abducens: Intact Cranial Nerve VII- Facial: Intact Cranial Nerve VIII- Auditory: Intact Cranial Nerve IX- Glossopharyngeal: Intact Cranial Nerve X- Vagus: Intact Cranial Nerve XI- Accessory: Intact Cranial Nerve XII- Hypoglossal: Intact Results Labs: Abnormal Lab Results - Last 24 Hours (Table) 12/03/17 Range/Units 11:34 Ur Amphetamines Screen Detected H (NotDetected) U Methamphetamines Scrn Detected H (NotDetected) U Marijuana (THC) Screen Detected H (NotDetected) Thrombosis Risk Factor Assmnt - DVT/VTE Prophylaxis DVT/VTE Prophylaxis: Low risk, early ambulation encouraged - Choose All That Apply Any of the Below Risk Factors Present?: No Other Risk Factors: No Other congenital or acquired thrombophilia - If yes, enter type in comment: No Thrombosis Risk Factor Assessment Level: Very Low Risk Assessment and Plan Assessment: Tobacco abuse -Cessation -Nicotine replacement Methamphetamine abuse -Cessation Hallucinations -Your psych management -Check TSH and CMP, urinalysis, and CBC Thank you for allowing us to participate in the care of this patient. We will follow peripherally. Do not hesitate to contact us with questions. Someone can be reached from the [facility] hospitalist group at all hours of the day at [phone].
[2017-12-04] MEDS: LORazepam 1 MG TAB PO PRN ×2 (02:45→22:50)
[2017-12-04] MEDS ORDERED: LORazepam 2 MG/ML INJ IM PRN (03:19)
[2017-12-04] MEDS: ZIPRASIDONE 20 MG VIAL IM PRN (03:31)
[2017-12-04 09:19] LABS: Basophils % (A) 0 %; Eosinophils # (A) 0.1 k/uL (0-0.7); Eosinophils % (A) 1 %; HCT 47.5 % (39.0-53.0); HGB 15.8 gm/dL (13.0-17.5); Lymphocytes # (A) 3.3 k/uL (1.0-4.8); Lymphocytes % (A) 39 %; MCH 29.2 pg (25.0-35.0); MCHC 33.2 g/dL (31.0-37.0); MCV 87.9 fL (80.0-100.0); Mean Platelet Volume 7.2; Monocytes # (A) 0.5 k/uL (0-1.0); Monocytes % (A) 7 %; Neutrophils # (A) 4.2 k/uL (1.3-7.7); Neutrophils % (A) 51 %; Platelet Count 242 k/uL (150-450); RBC 5.41 m/uL (4.30-5.90); WBC 8.3 k/uL (3.8-10.6)
[2017-12-04 09:39] LABS: ALT 22 U/L (21-72); AST 35 U/L (17-59); Albumin 4.8 g/dL (3.5-5.0); Alkaline Phosphatase 66 U/L (38-126); Anion Gap 12 mmol/L; Blood Urea Nitrogen 18 mg/dL (9-20); Calcium 10.1 mg/dL (8.4-10.2); Carbon Dioxide 25 mmol/L (22-30); Chloride 106 mmol/L (98-107); Cholesterol 168 mg/dL (<200); Glucose 92 mg/dL (74-99); HDL Cholesterol 47 mg/dL (40-60); LDL Cholesterol,Calculated 105 mg/dL (0-99); Potassium 4.6 mmol/L (3.5-5.1); Sodium 143 mmol/L (137-145); Total Bilirubin 1.1 mg/dL (0.2-1.3); Total Protein 7.9 g/dL (6.3-8.2); Triglycerides 78 mg/dL (<150)
[2017-12-04] MEDS: NICOTINE 14MG/24HR PATCH TRANSDERM SCH (12:13)
--- NOTE | 2017-12-04 13:51 | P.PN ---
Progress Note - Text Progress Note Date: 12/04/17 Clinical Problems: Methamphetamine induced psychotic disorder, methamphetamine use disorder Interim history: I reviewed the medical record, interviewed the patient and discuss his treatment and treatment plan during team meeting. He was much less sedated today and participated in the interview. He described using methamphetamine about 2 days prior to admission. He denied that he has been using methamphetamine on a frequent basis; alleging that this was the first time he used methamphetamine since his last psychiatric hospitalization. He shows no insight or understanding as to the reason for this hospitalization. He believes that his girlfriend and father "overreacted" when he told them that he had a used methamphetamine. He does not remember his behavior prior to presenting to the emergency room or while he was in the emergency room. He denies that he was experiencing auditory hallucinations. He explained his attempt to elopement from the emergency room as a reasonable reaction when staff would not allow him to leave voluntarily. 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 He returned to [place] "a couple weeks ago" after he completed his last contract. He denied problems or concerns until he told his girlfriend and father that he used methamphetamine. He denied feeling depressed or having thoughts of or suicide. He denied sustained periods of irritability or elevated mood. He denied persistent feelings of anxiety and fearfulness ability to function. He denied symptoms suggestive of panic attacks, obsessions or compulsions. He denied the use of drugs other than alcohol and recent use of methamphetamine. He alleged that he was not been able to follow through with this referral for individual therapy while working in [place]. He appeared to understand that he could not because the hospital until he has a probate hearing. Mental status exam: He presented as a tall casually groomed young [place] male who was pleasant on approach. He made eye contact and attended to the interview. He had no distinguishing features or prominent physical abnormalities. He had a blunted but bright facial expression. He was alert and oriented to person, place and time. He showed no abnormality of psychomotor activity. He had no abnormal movements. His gait was normal. His speech was spontaneous with normal rate, rhythm and volume. He had no articulation difficulties. He denied suicidal ideation or wishes. He denied homicidal ideation. He denied such depressive cognitions as hopelessness , helplessness or worthlessness. He did not express obsessions, phobias, ideas of reference, paranoid ideation or delusional thoughts. He ruminated about the circumstances that led to this hospitalization. His thinking was abstract and associations were coherent and logical. He did not demonstrate clang associations, perseverations, neologisms or blocking. He denied hallucinations and did not appear to be responding to internal stimuli. Global impression of intellect is average. He shows limited understanding of the consequences of methamphetamine use. Assessment: The psychotic symptoms appear to have resolved but he has limited insight or understanding on the profound changes in mood, thinking and behavior he experiences when he uses the drug. Plan: Continue inpatient hospitalization pending the probate hearing. Continue when necessary Geodon and Ativan. There is no indication for other psychotropic medications at this time. Continue to discuss referral for substance abuse treatment. Encourage participation in therapeutic groups and activities. Evaluate clinical status response to treatment on a daily basis.
[2017-12-04 16:38] LABS: Hemoglobin A1C 5.1 % (4.0-6.0)
[2017-12-05] MEDS: ZIPRASIDONE 20 MG VIAL IM PRN (03:41)
[2017-12-05] MEDS: NICOTINE 14MG/24HR PATCH TRANSDERM SCH ×2 (09:04→22:00)
--- NOTE | 2017-12-05 13:54 | P.PN ---
Progress Note - Text Progress Note Date: 12/05/17 Clinical Problems: Unspecified depressive disorder, methamphetamine induced psychotic disorder resolved, methamphetamine use disorder unspecified Interim history: I reviewed the medical record, interviewed the patient and discuss his treatment and treatment plan during team meeting. During our interview he had several questions about the involuntary hospitalization process. His primary concern is when he would expect to be discharged. He alleged that if he were to remain in the hospital beyond December 09 he may lose his job. He was depressed and tearful during this interview. He stated that during a telephone conversation, his girlfriend she is more distant and "noncommittal". He believes that she is planning to end their relationship. He talked about their future plans including the possibility of marriage. He also feels embarrassed by his behavior (relapse to use of methamphetamine) and too embarrassed to speak with his father. Mental status exam: He presented as a casually groomed young -[place] male who was pleasant on approach. He maintained eye contact and attended to the interview. He had a depressed facial expression and cried intermittently during interview. He showed slight psychomotor Retardation but no abnormal movements. Speech was spontaneous with normal rate but decreased rhythm and volume. His affect was depressed but reactive. He denied suicidal ideation or wishes. He denied homicidal ideation. He did not express feelings of hopelessness or helplessness. He does not feel worthless. He did not express ideas reference, paranoid ideation or delusional release. He denied hallucinations and did not appear to be responding to internal stimuli. Assessment: The psychotic symptoms particularly the auditory hallucinations agitation fully resolved. He is demonstrating more symptoms of depression as he begins to recognize the consequences from the relapse to methamphetamine. He does not appear to meet criterion for depressive disorder however. Plan: Continue inpatient hospitalization pending the probate hearing. Continue seizure precautions. Evaluate need for antidepressant medication. Encouraged continued participation in therapeutic groups and activities. Evaluate clinical status response to treatment on a daily basis.
[2017-12-05] MEDS: LORazepam 1 MG TAB PO PRN (20:54)
[2017-12-06] MEDS: NICOTINE 14MG/24HR PATCH TRANSDERM SCH (09:24)
[2017-12-06] MEDS: LORazepam 1 MG TAB PO PRN (20:13)
--- NOTE | 2017-12-06 21:08 | P.PN ---
Progress Note - Text Progress Note Date: 12/06/17 IDENTIFICATION DATA: 22-year-old -Slovenian male brought to the emergency room by the police and his father. He was admitted due to paranoid delusions and agitation. His UDS was positive for amphetamines, methamphetamines and marijuana. He is diagnosed with Methamphetamine induced psychotic disorder. INTERVAL HISTORY: He reports feeling ashamed to be back in the hospital again. He says he was hallucinating due to using meth and came to the hospital for help. He says he currently waiting for his court date. He reports being worried about his job. He says he takes ativan at night to help him to sleep well at night. He reports feeling tired and taking multiple naps during the day. He reports good appetite. MENTAL STATUS EXAMINATION: Patient appeared his stated age in fair grooming and hygiene. He denies current auditory or visual hallucinations. He denies paranoid ideations. He is alert and oriented 4. Motor and speech behaviors are within normal limits. Mood is "okay" and affect is appropriate. thought processes linear thought content is negative for suicidal or homicidal ideation. ASSESSMENT AND PLAN: no further changes at this time.
[2017-12-07] MEDS: diphenhydrAMINE 50 MG CAP PO PRN (00:37)
[2017-12-07] MEDS: NICOTINE 14MG/24HR PATCH TRANSDERM SCH (08:17)
[2017-12-07 12:15] LABS: Appearance,Urine Clear (Clear); Bilirubin,Urine Negative (Negative); Blood,Urine Negative (Negative); Color,Urine Colorless; Glucose,Urine (UA) Negative (Negative); Ketones,Urine Negative (Negative); Leukocyte Esterase,Urine Trace (Negative); Nitrite,Urine Negative (Negative); PH, Urine 7.5 (5.0-8.0); Protein,Urine Negative (Negative); Specific Gravity,Urine 1.002 (1.001-1.035); Urobilinogen,Urine <2.0 mg/dL (<2.0); WBC,Urine 2 /hpf (0-5)
--- NOTE | 2017-12-07 20:35 | P.PN ---
Progress Note - Text Progress Note Date: 12/07/17 IDENTIFICATION DATA: 22-year-old -[place]in[place] male brought to the emergency room by the police and his father. He was admitted due to paranoid delusions and agitation. His UDS was positive for amphetamines, methamphetamines and marijuana. He is diagnosed with Methamphetamine induced psychotic disorder. INTERVAL HISTORY: He reports to have taken Benadryl in addition to ativan yesterday night to help him sleep. He denies any other problems at this time. He denies current symptoms of psychosis. He reports good appetite. He is awaiting his court hearing. MENTAL STATUS EXAMINATION: Patient appeared his stated age in fair grooming and hygiene. He denies current auditory or visual hallucinations. He denies paranoid ideations. He is alert and oriented 4. Motor and speech behaviors are within normal limits. Mood is "GOOD" and affect is appropriate. thought processes linear thought content is negative for suicidal or homicidal ideation. ASSESSMENT AND PLAN: no further changes at this time.
[2017-12-08] MEDS: NICOTINE 14MG/24HR PATCH TRANSDERM SCH (07:56)
--- NOTE | 2017-12-08 12:49 | P.PN ---
Progress Note - Text Progress Note Date: 12/08/17 Clinical Problems: Depressive disorder unspecified rule out methamphetamine withdrawal versus methamphetamine induced depressive disorder, Methamphetamine induced psychotic disorder resolved, methamphetamine use disorder unspecified, Interim history: I reviewed the medical record, interviewed the patient and discuss his treatment during treatment team meeting. He denied problems or concerns other than the involuntary hospitalization and needing to remain in the hospital. He denied feeling depressed, hopeless or helpless. He denied suicidal ideation. He denied that he is experiencing auditory hallucinations. Mental status exam: He presented as a tall thin casually groomed (can male who was pleasant on approach. He made eye contact and attended to the interview. He had a bright facial expression. He showed no abnormality of psychomotor activity and no abnormal movements. His speech was spontaneous with normal rate , rhythm and volume. His affect was stable and appropriate. He did not express suicidal ideation, wishes or homicidal ideation. He denied feeling hopeless, helpless or worthless. He did not express ideas reference, paranoid ideation or delusions. His thinking was abstract and associations were coherent, logical and goal directed. He denied hallucinations and did not appear to be responding to internal stimuli. Assessment: The psychotic symptoms appear to fully resolved with abstinence from methamphetamine. We are waiting the probate hearing following our demand. Plan: Continue inpatient hospitalization. Completed a clinical certificate in support of the demand for hearing. Continue lorazepam and Geodon when necessary for agitation acute psychosis. Most likely discharge after the probate hearing. Encouraged continued participation in therapeutic groups and activities. Evaluate clinical status response to treatment on a daily basis.
[2017-12-08] MEDS: LORazepam 1 MG TAB PO PRN (19:46)
[2017-12-09] MEDS: NICOTINE 14MG/24HR PATCH TRANSDERM SCH ×2 (08:53→12:31)
--- NOTE | 2017-12-09 11:12 | P.PN ---
Progress Note - Text Interval history: The patient is found in group he follows me to an interview room. It appears the patient was admitted again for symptoms of psychosis in the context of methamphetamine use. He admits he again recently use methamphetamine which provoke symptoms of psychosis. He states he does not recall them but is aware of what he was doing at presentation. He states his mood is stable. He does have a demand for hearing scheduled. We discussed the court process and he understands. He has not required any psychotropic medication at this time. He states he is willing to comply with outpatient care. Mental status exam: The patient is alert he is dressed in his own clothing hygiene grooming are good. Eye contact is appropriate speech is fluent spontaneous nonpressured. He has a bright euthymic affect. He reports no suicidal or homicidal ideation intent or plan. He is endorsing no auditory or visual hallucinations or any specific delusions. There is no observed evidence of psychosis at this point. He demonstrates no tangential thinking loose associations or flight of ideas. He does not appear hypomanic or manic. He demonstrates no verbal or physical aggressiveness. He demonstrates future oriented thinking. He is oriented to person place and date. Plan: The patient has stabilized in terms of his symptoms of psychosis. He does have a demand for hearing scheduled for tomorrow. I would anticipate discharging him tomorrow after that court proceeding. Vital signs reviewed. He is encouraged to continue participating in the milieu.
[2017-12-09] MEDS: diphenhydrAMINE 50 MG CAP PO PRN (21:57)
[2017-12-10 06:38] VITALS: BP 129/56; PULSE 63; RESP 14; TEMP 97.9
[2017-12-10] MEDS: NICOTINE 14MG/24HR PATCH TRANSDERM SCH (08:13)
--- NOTE | 2017-12-10 09:15 | P.DS ---
Providers Date of admission: 12/03/17 12:10 Expected date of discharge: 12/10/17 Attending physician: Riki Gleason Consults: 12/03/17 12:17 Consult Physician Routine Consulting Provider: Radha Peter Consult Reason/Comments: H and P Do you want consulting provider notified?: Yes Primary care physician: Stated None - Discharge Diagnosis(es) (1) Methamphetamine-induced psychotic disorder Current Visit: No Status: Acute Priority: High (2) Methamphetamine use disorder, moderate Current Visit: Yes Status: Acute Priority: High Hospital Course: Brief summary of admission note: This patient is a 22-year-old -Nepalese male who was admitted to the mental health unit through the emergency room for acute symptoms of psychosis. The patient was brought to the hospital by police due to agitation and symptoms of paranoia. He attempted to elope from the emergency room and required intramuscular Ativan and Geodon. This was the patient's second admission to this mental health unit his first was just last August for a similar presentation. At that time he presented with acute psychosis in the context of using methamphetamine. For full detail please refer to Dr. Taylor psychiatric evaluation dated 12/03/2017. Summary of hospital course: The patient was admitted to the mental health unit in voluntarily. He presented already on a deferral agreement. A demand for hearing was scheduled which will be held today at 2 PM. The patient was initially evaluated and treated by Dr. Taylor. I assumed care of the patient yesterday. The patient's symptoms of psychosis have completely resolved. He reports no thoughts of self-harm or harm to others. Staff report that he's been calm and easily directed. He was seen by internal medicine for routine history and physical exam. He has demonstrated no agitated behavior on the mental health unit. He is aware that he has a court hearing today he indicates he will keep his appointments with [facility]. He does not wish to participate in inpatient chemical dependency treatment. Mental status exam: The patient is alert he is dressed in his own clothing hygiene grooming are adequate. Eye contact is appropriate speech is fluent spontaneous nonpressured. He reports his mood is good he denies having any suicidal or homicidal ideation intent or plan. He is reporting no auditory or visual hallucinations or any specific delusions. There is no observed evidence of psychosis at this time. He demonstrates no tangential thinking loose associations or flight of ideas. He does not appear hypomanic or manic. Affect is appropriately expresses and he appears euthymic. He is oriented to person place and date. He demonstrates no verbal or physical aggressiveness or any involuntary repetitive movements. Insight and judgment are grossly intact. Impressions 1. Methamphetamine induced psychotic disorder, methamphetamine use disorder Plan: The patient will be discharged today from the mental health unit following his court appearance. He does not require any psychotropic medication at this time. He will participate in outpatient mental health appointments as directed by [facility]. The patient does not wish to participate in inpatient chemical dependency treatment. There is no imminent safety risk he is appropriate for transition outpatient care at this time. He is instructed to abstain from all substances including alcohol and marijuana as they would likely provoke symptoms of psychosis and elevate his safety risk. He is instructed to return to the hospital with any acute safety concerns. Patient Condition at Discharge: Stable Plan - Discharge Summary Discharge Rx Participant: No New Discharge Prescriptions: No Action No Known Home Medications Discharge Medication List No Known Home Medications 12/03/17 [History] Follow up Appointment(s)/Referral(s): [facility] [Outside] - 12/18/17 9:00 am ( 12-18-17 @ 9:00 with Diana Braswell 12-18-17 @ 11:[address] Nelson) None,Stated [Primary Care Provider] - 1-2 days Patient Instructions/Handouts: How to Stop Smoking (GEN), Suicide Prevention ( GEN) Activity/Diet/Wound Care/Special Instructions: Activity and diet as tolerated. Avoid the use of street drugs and alcohol. Take all medications as prescribed. When you are in need of refills on your medications please contact your medical provider and/or outpatient psychiatrist to have this done. Please go to scheduled outpatient appointment for aftercare treatment. If symptoms return or become worse, call the crisis line at [phone] and/or go to the nearest emergency room for evaluation.
== END 2017-12-10 15:03 | disposition home or self-care (01) | DRG 897 ==
LOC: EC 08:25 → 3MHU 12:10
PROVIDERS: ADMIT Psychiatry & Neurology Psychiatry; ATTEND Psychiatry & Neurology Psychiatry
DX: F15.259 Other stimulant dependence with stimulant-induced psychotic disorder, unspecified (principal); F17.200 Nicotine dependence, unspecified, uncomplicated; F32.9 Major depressive disorder, single episode, unspecified; F12.90 Cannabis use, unspecified, uncomplicated; F10.10 Alcohol abuse, uncomplicated; Z88.0 Allergy status to penicillin; Z71.6 Tobacco abuse counseling; Z71.51 Drug abuse counseling and surveillance of drug abuser
CPT/HCPCS: 80053; 80061; 80306; 81001; 82075; 83036; 84443; 85025; 96372; 99285

== ENCOUNTER 2017-12-26 22:23 | Inpatient (IN) | payer MEDICAID, OTHER ==
--- NOTE | 2017-12-26 23:02 | ED ---
Psych HPI - General Chief Complaint: Psychiatric Symptoms Stated Complaint: Mental health Time Seen by Provider: 12/26/17 22:46 Source: patient, police, RN notes reviewed Mode of arrival: ambulatory Limitations: altered mental status - History of Present Illness Initial Comments: This is a 22-year-old male the ER for evaluation of altered mental status, patient is acutely psychotic, does have history of drug abuse. Patient has multiple recent hospital admissions for same symptoms, pedis methamphetamine use. Prior hospitalizations for psychiatric illness MD Complaint: altered mental status -: unknown Associated Psychiatric Symptoms: homicidal ideation, racing thoughts, auditory hallucinations, visual hallucinations History of same: Yes Quality: intermittent Improves With: medication Worsens With: medication Context: recent drug abuse, not taking psychiatric medications, new medication(s ) Associated Symptoms: insomnia Treatments Prior to Arrival: none - Related Data Home Medications Medication Instructions Recorded Confirmed No Known Home Medications 12/26/17 12/26/17 Allergies Allergy/AdvReac Type Severity Reaction Status Date / Time amoxicillin [Amoxicillin] Allergy Rash/Hives Verified 12/26/17 22:52 Penicillins Allergy Rash/Hives Verified 12/26/17 22:52 Review of Systems ROS Statement: Those systems with pertinent positive or pertinent negative responses have been documented in the HPI. ROS Other: All systems not noted in ROS Statement are negative. Past Medical History Past Medical History: No Reported History History of Any Multi-Drug Resistant Organisms: None Reported Past Surgical History: Orthopedic Surgery Additional Past Surgical History / Comment(s): right knee Past Anesthesia/Blood Transfusion Reactions: No Reported Reaction Past Psychological History: Unable to Obtain Smoking Status: Current some day smoker Past Alcohol Use History: Occasional Past Drug Use History: Methamphetamine General Exam Limitations: altered mental status General appearance: alert, in no apparent distress Head exam: Present: atraumatic, normocephalic, normal inspection Eye exam: Present: normal appearance, PERRL, EOMI. Absent: scleral icterus, conjunctival injection, periorbital swelling ENT exam: Present: normal exam, mucous membranes moist Neck exam: Present: normal inspection. Absent: tenderness, meningismus, lymphadenopathy Respiratory exam: Present: normal lung sounds bilaterally. Absent: respiratory distress, wheezes, rales, rhonchi, stridor Cardiovascular Exam: Present: regular rate, normal rhythm, normal heart sounds. Absent: systolic murmur, diastolic murmur, rubs, gallop, clicks GI/Abdominal exam: Present: soft, normal bowel sounds. Absent: distended, tenderness, guarding, rebound, rigid Extremities exam: Present: normal inspection, full ROM, normal capillary refill. Absent: tenderness, pedal edema, joint swelling, calf tenderness Back exam: Present: normal inspection Neurological exam: Present: alert, oriented X3, CN II-XII intact Psychiatric exam: Present: normal affect, normal mood Skin exam: Present: warm, dry, intact, normal color. Absent: rash Course Vital Signs 12/26/17 12/27/17 22:36 03:36 Temperature 98.7 F Pulse Rate 71 87 Respiratory 18 20 Rate Blood Pressure 144/90 143/93 O2 Sat by Pulse 95 99 Oximetry - Reevaluation(s) Reevaluation #1: 12/27/17 04:16 Patient's medically clear for psychiatric evaluation Medical Decision Making - Medical Decision Making 19 female seen and evaluated with psychiatry will be admitted for psychiatric evaluation and treatment Disposition Clinical Impression: Cannabis use disorder, moderate, dependence, Acute psychosis, Methamphetamine intoxication Disposition: TRANSFER TO PSYCH HOSP/UNIT Condition: Fair Is patient prescribed a controlled substance at d/c from ED?: No
[2017-12-27] MEDS ORDERED: LORazepam 1 MG TAB PO STA ×2 (00:10→02:51)
[2017-12-27] MEDS ORDERED: DIAZEPAM 5 MG TAB PO STA (00:10)
[2017-12-27] MEDS ORDERED: diphenhydrAMINE 50 MG/ML 1 ML VIAL IM STA ×2 (02:43→04:10)
[2017-12-27] MEDS ORDERED: LORazepam 2 MG/ML INJ IM STA ×2 (02:43→13:51)
[2017-12-27] MEDS ORDERED: diphenhydrAMINE 50 MG CAP PO STA ×2 (02:52→12:47)
[2017-12-27] MEDS ORDERED: ZIPRASIDONE 20 MG VIAL IM PRN (03:42)
[2017-12-27] MEDS ORDERED: LORazepam 1 MG TAB PO PRN (03:42)
[2017-12-27] MEDS ORDERED: MAG HYDROX/AL HYDROX/SIMETH 30 ML CUP PO PRN (03:42)
[2017-12-27] MEDS ORDERED: MAGNESIUM HYDROXIDE 2,400 MG/10 ML CUP PO PRN (03:42)
[2017-12-27] MEDS ORDERED: ACETAMINOPHEN TAB 325 MG TAB PO PRN (03:42)
[2017-12-27] MEDS ORDERED: HALOPERIDOL LACTATE 5 MG/ML 1 ML VIAL IM STA (04:13)
[2017-12-27] MEDS ORDERED: NICOTINE 21MG/24HR PATCH TRANSDERM SCH (09:00)
[2017-12-27 09:14] LABS: Basophils # (A) 0.1 k/uL (0-0.2); Basophils % (A) 1 %; Eosinophils # (A) 0.1 k/uL (0-0.7); Eosinophils % (A) 1 %; HGB 16.2 gm/dL (13.0-17.5); Lymphocytes # (A) 3.3 k/uL (1.0-4.8); Lymphocytes % (A) 33 %; MCH 28.2 pg (25.0-35.0); MCHC 32.4 g/dL (31.0-37.0); MCV 87.2 fL (80.0-100.0); Monocytes # (A) 0.9 k/uL (0-1.0); Monocytes % (A) 9 %; Neutrophils # (A) 5.5 k/uL (1.3-7.7); Neutrophils % (A) 55 %; Platelet Count 238 k/uL (150-450); RBC 5.73 m/uL (4.30-5.90); RDW 12.6 % (11.5-15.5)
--- NOTE | 2017-12-27 09:27 | P.CONS ---
History of Present Illness - Reason for Consult Consult date: 12/27/17 Medical management - Chief Complaint Substance abuse - History of Present Illness This is a 22-year-old male with past medical history significant for polysubstance abuse including marijuana and methamphetamine who is currently admitted to the psych unit for further evaluation of acute psychosis. When I saw the patient he was fairly sleepy but easily arousable. He was not cooperative with my history taking. He was only answering yes or no questions. He does not elaborate further. History was obtained by chart review and nursing staff report. Patient presented to the emergency room last night with acute psychosis and admits to use of methamphetamine. He appears calm when I saw him. He denies any specific concerns or complaints. He denies any pain. No lab work was obtained in the emergency room. Review of Systems Review of system: 14 points review of systems were obtained and were negative except to what were mentioned in the HPI. Past Medical History Past Medical History: No Reported History History of Any Multi-Drug Resistant Organisms: None Reported Past Surgical History: Orthopedic Surgery Additional Past Surgical History / Comment(s): right knee Past Anesthesia/Blood Transfusion Reactions: No Reported Reaction Past Psychological History: Unable to Obtain Smoking Status: Current some day smoker Past Alcohol Use History: Occasional Past Drug Use History: Methamphetamine Medications and Allergies Home Medications Medication Instructions Recorded Confirmed Type No Known Home Medications 12/26/17 12/26/17 History Allergies Allergy/AdvReac Type Severity Reaction Status Date / Time amoxicillin [Amoxicillin] Allergy Rash/Hives Verified 12/26/17 22:52 Penicillins Allergy Rash/Hives Verified 12/26/17 22:52 Physical Exam Vitals: Vital Signs Temp Pulse Resp BP Pulse Ox 12/27/17 03:36 87 20 143/93 99 12/26/17 22:36 98.7 F 71 18 144/90 95 Intake and Output 12/26/17 12/27/17 12/27/17 22:59 06:59 14:59 Other: Weight 83.915 kg 80.739 kg General: The patient is awake and alert, in no distress Eye: there is normal conjunctiva bilaterally. Neck: The neck is supple, there is no JVD. Cardiovascular: Normal S1-S2, no S3-S4, no murmurs. Respiratory: Lungs clear to auscultation bilaterally Gastrointestinal: Abdomen is soft, nontender Musculoskeletal: There is no pedal edema. Neurological:. Speech is normal. Skin: Skin is warm and dry Results CBC & Chem 7: 12/27/17 08:46 Assessment and Plan Assessment: 1. Acute psychosis, secondary to methamphetamine use. Management per psychiatry. 2. Polysubstance abuse including methamphetamine and marijuana, counseled extensively to stop 3. Tobacco abuse, nicotine patch ordered Today, I reviewed his medication list. I also reviewed lab work done December 04. We will defer management to psychiatry at this time. No medical issues. Thank you very much for the consultation. We will follow up on him on an as- needed basis.
[2017-12-27 09:30] LABS: ALT 34 U/L (21-72); AST 89 U/L (17-59); Albumin 4.9 g/dL (3.5-5.0); Alkaline Phosphatase 63 U/L (38-126); Anion Gap 12 mmol/L; Bilirubin, Delta 0.2 mg/dL (0.0-0.2); Bilirubin,Unconjugated 1.3 mg/dL (0.0-1.1); Blood Urea Nitrogen 22 mg/dL (9-20); Calcium 10.4 mg/dL (8.4-10.2); Carbon Dioxide 29 mmol/L (22-30); Chloride 103 mmol/L (98-107); Cholesterol 183 mg/dL (<200); Glucose 99 mg/dL (74-99); HDL Cholesterol 51 mg/dL (40-60); LDL Cholesterol,Calculated 121 mg/dL (0-99); Potassium 4.5 mmol/L (3.5-5.1); Sodium 144 mmol/L (137-145); Total Bilirubin 1.5 mg/dL (0.2-1.3); Total Protein 8.3 g/dL (6.3-8.2); Triglycerides 53 mg/dL (<150)
[2017-12-27] MEDS ORDERED: cloNIDine HCL 0.1 MG TAB PO STA (12:40)
[2017-12-27 13:38] LABS: HCT 51.4 % (39.0-53.0); HGB 17.1 gm/dL (13.0-17.5); MCH 28.7 pg (25.0-35.0); MCHC 33.3 g/dL (31.0-37.0); MCV 86.2 fL (80.0-100.0); Mean Platelet Volume 6.9; Platelet Count 261 k/uL (150-450); RBC 5.96 m/uL (4.30-5.90); RDW 12.6 % (11.5-15.5); WBC 14.5 k/uL (3.8-10.6)
[2017-12-27 13:39] LABS: Glucose,Whole Blood 91 mg/dL (75-99)
[2017-12-27] MEDS ORDERED: SODIUM CHLORIDE 0.9% 1,000 ML IV ONE (13:44)
[2017-12-27] MEDS ORDERED: DIAZEPAM 5 MG/ML 2 ML INJ IM ONE (13:44)
[2017-12-27 13:51] LABS: Albumin 5.5 g/dL (3.5-5.0); Calcium 10.7 mg/dL (8.4-10.2); Potassium 4.6 mmol/L (3.5-5.1); Total Bilirubin 1.9 mg/dL (0.2-1.3); Total Protein 9.2 g/dL (6.3-8.2)
[2017-12-27 14:08] LABS: Glucose,Whole Blood 102 mg/dL (75-99)
[2017-12-27 14:09] LABS: Creatine Kinase MB 14.5 ng/mL (0.0-2.4); Troponin I <0.012 ng/mL (0.000-0.034)
[2017-12-27] MEDS ORDERED: SODIUM CHLORIDE 0.9% 500 ML 500 ML IV ONE (14:16)
--- NOTE | 2017-12-27 14:20 | P.PN ---
Progress Note - Text Progress Note Date: 12/27/17 I was called to reassess the patient by his nurse. Patient was noted by nursing staff to having significant shaking and was profusely sweaty. Upon my evaluation, patient was awake and alert. He was having severe tremors and shakiness all over his body. He was significantly diaphoretic. He appeared to have methamphetamine withdrawal. This was a clinical diagnosis and based on his history and prior presentations. No urine toxicology screen available during this admission for me to review. Vital signs showed tachycardia with heart rate up to 140s to 150s. Blood pressure was stable and mostly on the higher side with a systolic blood pressure in the 150s. On exam, patient was noted to be sinus tachycardia. I ordered 1 L of 0.9 normal saline IV bolus. We also administered one-time dose of IM Ativan 2 mg. 10-15 minutes later patient's overall condition started to improve and his shakiness improved significantly. I ordered an additional one-time dose of IV Ativan 1 mg and also directed the nurse to give an additional 500 mL of 0.9 normal saline when the first 1 L boluses finished. We will continue to monitor the patient closely. I advised the nurse to keep monitoring heart rate using the finger pulse ox machine. Advised her to inform me if heart rate increases above 150 or if patient become hemodynamically unstable or if any evidence of clinical deterioration then the patient needs to be transferred to the medical floor. Currently no beds available in the medical floor according to the nurse field manager. We will continue to monitor closely. I reviewed his lab work results that was generally within acceptable range with slight elevation in AST and total bilirubin. Otherwise kidney function was within normal range. Mild leukocytosis is probably related to significant stress and tremors.
[2017-12-27] MEDS ORDERED: LORazepam 2 MG/ML INJ IV STA (14:37)
--- NOTE | 2017-12-27 14:39 | P.PN ---
Progress Note - Text Progress Note Date: 12/27/17 Follow-up lab work showed evidence of leukocytosis with evidence of rhabdomyolysis and elevated creatinine kinase as well as acute kidney injury. Unfortunately, patient pulled his IV. I directed the nurse to reinsert the IV and continue aggressive IV fluid resuscitation. I also ordered to transfer the patient to the medical floor for further treatment. We will repeat lab work in the next 4-6 hours.
[2017-12-27 14:50] VITALS: RESP 16
--- NOTE | 2017-12-27 14:52 | P.HP ---
Psychiatric H&P - . H&P Date: 12/27/17 History & Physical: Allergies Allergy/AdvReac Type Severity Reaction Status Date / Time amoxicillin [Amoxicillin] Allergy Rash/Hives Verified 12/26/17 22:52 Penicillins Allergy Rash/Hives Verified 12/26/17 22:52 Vital Signs Temp 98.4 F 12/27/17 11:11 Pulse 147 H 12/27/17 11:11 Resp 20 12/27/17 11:11 BP 158/90 12/27/17 11:11 Pulse Ox 99 12/27/17 03:36 Intake & Output 12/26/17 12/27/17 12/27/17 18:59 06:59 18:59 Weight 80.739 kg Laboratory Last Values WBC 10.0 k/uL (3.8-10.6) 12/27/17 08:46 RBC 5.73 m/uL (4.30-5.90) 12/27/17 08:46 Hgb 16.2 gm/dL (13.0-17.5) 12/27/17 08:46 Hct 50.0 % (39.0-53.0) 12/27/17 08:46 MCV 87.2 fL (80.0-100.0) 12/27/17 08:46 MCH 28.2 pg (25.0-35.0) 12/27/17 08:46 MCHC 32.4 g/dL (31.0-37.0) 12/27/17 08:46 RDW 12.6 % (11.5-15.5) 12/27/17 08:46 Plt Count 238 k/uL (150-450) 12/27/17 08:46 Neutrophils % 55 % 12/27/17 08:46 Lymphocytes % 33 % 12/27/17 08:46 Monocytes % 9 % 12/27/17 08:46 Eosinophils % 1 % 12/27/17 08:46 Basophils % 1 % 12/27/17 08:46 Neutrophils # 5.5 k/uL (1.3-7.7) 12/27/17 08:46 Lymphocytes # 3.3 k/uL (1.0-4.8) 12/27/17 08:46 Monocytes # 0.9 k/uL (0-1.0) 12/27/17 08:46 Eosinophils # 0.1 k/uL (0-0.7) 12/27/17 08:46 Basophils # 0.1 k/uL (0-0.2) 12/27/17 08:46 Sodium 144 mmol/L (137-145) 12/27/17 08:46 Potassium 4.5 mmol/L (3.5-5.1) 12/27/17 08:46 Chloride 103 mmol/L (98-107) 12/27/17 08:46 Carbon Dioxide 29 mmol/L (22-30) 12/27/17 08:46 Anion Gap 12 mmol/L 12/27/17 08:46 BUN 22 mg/dL (9-20) H 12/27/17 08:46 Creatinine 1.10 mg/dL (0.66-1.25) 12/27/17 08:46 Est GFR (CKD-EPI)AfAm >90 (>60 ml/min/1.73 sqM) 12/27/17 08:46 Est GFR (CKD-EPI)NonAf >90 (>60 ml/min/1.73 sqM) 12/27/17 08:46 Glucose 99 mg/dL (74-99) 12/27/17 08:46 Calcium 10.4 mg/dL (8.4-10.2) H 12/27/17 08:46 Total Bilirubin 1.5 mg/dL (0.2-1.3) H 12/27/17 08:46 Conjugated Bilirubin 0.0 mg/dL (0.0-0.3) 12/27/17 08:46 Unconjugated Bilirubin 1.3 mg/dL (0.0-1.1) H 12/27/17 08:46 Delta Bilirubin 0.2 mg/dL (0.0-0.2) 12/27/17 08:46 AST 89 U/L (17-59) H 12/27/17 08:46 ALT 34 U/L (21-72) 12/27/17 08:46 Alkaline Phosphatase 63 U/L (38-126) 12/27/17 08:46 Total Protein 8.3 g/dL (6.3-8.2) H 12/27/17 08:46 Albumin 4.9 g/dL (3.5-5.0) 12/27/17 08:46 Triglycerides 53 mg/dL (<150) 12/27/17 08:46 Cholesterol 183 mg/dL (<200) 12/27/17 08:46 LDL Cholesterol, Calc 121 mg/dL (0-99) H 12/27/17 08:46 HDL Cholesterol 51 mg/dL (40-60) 12/27/17 08:46 TSH 0.980 mIU/L (0.465-4.680) 12/27/17 08:46 Assessment and Plan (1) Acute psychosis Narrative/Plan: This is a 22-year-old male the ER for evaluation of altered mental status, patient is acutely psychotic, does have history of drug abuse. Patient has multiple recent hospital admissions for same symptoms, pedis methamphetamine use. Prior hospitalizations for psychiatric illness MD Complaint: altered mental status -: unknown Associated Psychiatric Symptoms: homicidal ideation, racing thoughts, auditory hallucinations, visual hallucinations History of same: Yes Quality: intermittent Improves With: medication Worsens With: medication Context: recent drug abuse, not taking psychiatric medications, new medication(s ) Associated Symptoms: insomnia HISTORY OF PRESENT ILLNESS: Due to his agitation and paranoia the police brought him to the emergency room. In the emergency room he was agitated and paranoid. He attempted to elope from the emergency room and his management required intramuscular Ativan and Geodon. He presented to unit involuntarily. He was markedly sedated and unable to participate in an assessment. He was laying in bed and would open his eyes briefly when we shook him awake. According to information from medical record he has a history of methamphetamine use disorder. His urine drug screen was positive for amphetamines, methamphetamines and marijuana. PAST PSYCHIATRIC HISTORY: This is second admission to our psychiatric unit; the last was in August 2017. He presented with acute onset of paranoia and agitation in the context of abuse of methamphetamine. That admission was involuntary and he deferred the probate hearing. 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 No psychotropic medications were prescribed at discharge. Past Medical History Past Medical History: No Reported History History of Any Multi-Drug Resistant Organisms: None Reported Past Surgical History: Orthopedic Surgery Additional Past Surgical History / Comment(s): right knee Past Anesthesia/Blood Transfusion Reactions: No Reported Reaction Past Psychological History: Unable to Obtain Smoking Status: Current some day smoker Past Alcohol Use History: Occasional Past Drug Use History: Methamphetamine ALLERGIES: Amoxicillin, penicillins. SUBSTANCE USE HISTORY: According to information from the prior admission he has a history of marijuana use since she he was 11 years old. He alleged that he used methamphetamine twice prior to the last admission. FAMILY PSYCHIATRIC/SUBSTANCE USE HISTORY: There is no family history of mental health disorders. LEGAL HISTORY: He was in longterm in August 2016 for charges of domestic assault. SOCIAL HISTORY: His born in [facility] and raised by his grandparents. His mother is in [facility]. He denied a history of childhood abuse. He has 5 sisters and 2 brothers. He graduated from high school. He lived in [place] until December 2016 to be closer to his daughter. Musculoskeletal Examination - Abnormal/Involuntary Movements: [ tremors, spasm] Strength: [greater than antigravity (greater than/equal to 3/5) in all extremities, weakness:] Muscle Tone: [dystonia, ] Gait: [grossly normal] Station: [ unsteady] Mental Status Examination - General Appearance: [disheveled, bizarre, appears stated age Speech/Language: [ slow, slurred, rambled, mumbling, hesitant, halting, monotone , soft] Attitude/Behavior: [guarded, irritable, withdrawn, indifferent, ] Mood: [depressed anxious, elated, fearful, hopelessness, other] Affect: [flat, incongruent, labile, blunted constricted, other] Orientation: [not time, person, place situation] Thought Content: [ delusions Risk Factors: [denies suicidal (ideations, plan), and/or Homicidal (ideations, plan), other] Perception: [hallucinations (auditory Thought Processes: [circumstantial, tangential] Concentration/Attention Span: [ impaired] [Per observation and interview with the patient] Recent Memory: [impaired] [0 out of 3 in 3 minutes] Remote Memory: [ impaired] [past events, as related history] Intelligence: [below average] [based on history, based on vocabulary, syntax, grammar, and content] Judgement: [ poor] [per patient's behavior/history of present illness] Insight: [poor] [understanding severity of illness/history of present illness] Admitting Diagnosis: [Amphetamine induced psychosis] Patient Strengths - Able to vocalize needs: [x] Motivation, determination, readiness for change: [x] Patient Limitations: [medication, non-compliance, pathological/unsupported environment, intellectual impairment Initial Plan of Care: [He will be admitted to the [address] for acute psychosis and detox from amphetamine misuse. He will be evaluated by medicine, psychiatry, social work, nursing staff and recreational therapy. He'll be integrated in [facility] therapeutic environment and 15 minute checks will be done on a routine basis for his safety.] Estimated Length of Stay: [5 days] Initial Discharge Plan: [home, [facility], referred to therapist Prognosis: [ guarded] Justification for Inpatient Hospitalization - [Hallucinations, delusions, agitation, anxiety, depression resulting in significant loss of functioning.] [Dangerous to self, others, or property with need for controlled environment.] [Emotional or behavioral conditions and complications requiring 24 hour medical and nursing care.] [Need for special drug therapy, or other therapeutic program requiring continuous hospitalization.] [Failure of social or occupational functioning.] [Inability to meet basic life and health needs.] [Legally mandated admission.] [Recovery environment includes detrimental family structure, logical impediments to out-patient treatment.] [High relapse potential due to inability to control substance use.] [Needs treatment for acute intoxication or withdrawal.] [Failure of treatment at a lower level of care.] Transfer to medical floor due to elevated wbc, elevated BUN & creatinine possible NMS Current Visit: Yes Status: Acute Code(s): F23 - BRIEF PSYCHOTIC DISORDER SNOMED Code(s): 82445574 (2) Methamphetamine use disorder, moderate Current Visit: No Status: Acute Priority: High Code(s): F15.20 - OTHER STIMULANT DEPENDENCE, UNCOMPLICATED SNOMED Code(s): 329283220 (3) Methamphetamine-induced psychotic disorder Narrative/Plan: Diagnostic and Statistical Manual of Mental Disorders (Fourth Edition [DSM-IV]) Research Criteria for Neuroleptic Malignant Syndrome8 A. Development of severe muscle rigidity and elevated temperature associated with the use of neuroleptic medication. B. Two (or more) of the following: ?(1) Diaphoresis ?(2) Dysphagia ?(3) Tremor ?(4) Incontinence ?(5) Changes in level of consciousness ranging from confusion to coma ?(6) Mutism ?(7) Tachycardia ?(8) Elevated or labile blood pressure ?(9) Leukocytosis (10) Laboratory evidence of muscle injury (eg, elevated CPK) C. The symptoms in criteria A and B are not due to another substance or a neurological or other general medical condition. D. The symptoms in criteria A and B are not better accounted for by a mental disorder. Current Visit: No Status: Acute Priority: High Code(s): F15.959 - OTH STIMULANT USE, UNSP W STIM-INDUCE PSYCH DISORDER, UNSP SNOMED Code(s): 28365623069460401 Plan: EKG ordered and increased heart rate and sweating A Team called-sound doctor Patient appears now to [facility] and will transferred to medical Neuroleptic malignant syndrome in hospitalized patients is considered a neurologic emergency as a delay in treatment or withholding of therapeutic measures can potentially lead to serious morbidity or . As such, some consider it prudent to treat for NMS even if there is doubt about the diagnosis.53 Due to its rarity, however, systematic clinical trials in NMS are difficult to perform and so no evidence-based treatment approach exists. Nevertheless, effective general guidelines have been gleaned from case reports and analyses.54 Treatment of NMS is individualized and based on the clinical presentation, but the first step in essentially all cases consists of cessation of the suspected offending neuroleptic pharmacologic agent. If the syndrome has occurred in the setting of an abrupt withdrawal of a dopaminergic medication, then this medication is reinstituted as quickly as possible. The next hart step in the management of NMS is the initiation of supportive medical therapy. Aggressive hydration is often required, especially if highly elevated CPK levels threaten to damage the kidneys, and treatment of hyperthermia with cooling blankets or ice packs to the axillae and groin may be needed. Metabolic abnormalities may need to be corrected, and bicarbonate loading should be considered in some cases as it may be beneficial in preventing renal failure.55 Patients with NMS may be at increased risk of morbidity due to renal failure and disseminated intravascular coagulation (DIC) secondary to rhabdomyolysis,34 deep venous thrombosis and pulmonary embolism resulting from dehydration and immobilization , aspiration pneumonia because of difficulty swallowing combined with an altered mental status, as well as other medical complications including cardiopulmonary failure, seizures, arrhythmias, myocardial infarction, and sepsis, and so many cases require intensive care monitoring and support.3,13,56, 57 In more severe cases of NMS, empiric pharmacologic therapy is typically tried. The two most frequently used medications are bromocriptine mesylate, a dopamine agonist, and dantrolene sodium, a muscle relaxant that works by inhibiting calcium release from the sarcoplasmic reticulum. Anecdotal reports and meta- analyses suggest these agents may shorten the course of the syndrome and possibly reduce mortality when used alone or in combination.58,59 Bromocriptine is given to reverse the hypodopaminergic state and is administered orally (or via nasogastric tube), starting with 2.5 mg 2 or 3 times daily and increasing doses by 2.5 mg every 24 hours until a response or until reaching a maximum dose of 45 mg/d.13,34,58,59 Dantrolene can be administered intravenously starting with an initial bolus dose of 1 to 2.5 mg/kg followed by 1 mg/kg every 6 hours up to a maximum dose of 10 mg/kg/d.13,34,58,59 Oral dantrolene is used in less severe cases or to taper down from the intravenous form after a few days with doses that range from 50 to 200 mg/d. Due to a risk of hepatoxicity, dantrolene is typically discontinued once symptoms begin to resolve. Bromocriptine, however, is generally maintained for at least 10 days for NMS related to oral neuroleptics and 2 to 3 weeks for depot neuroleptics. Time with Patient: Greater than 30
[2017-12-27 15:39] VITALS: BP 129/67; PULSE 118; TEMP 98.7
[2017-12-27] MEDS ORDERED: cloNIDine HCL 0.1 MG TAB PO SCH (16:00)
[2017-12-27 17:49] LABS: Hemoglobin A1C 5.3 % (4.0-6.0)
--- NOTE | 2017-12-28 09:42 | P.DS ---
Providers Date of admission: 12/27/17 03:30 Expected date of discharge: 12/27/17 Attending physician: Riki Gleason Consults: 12/27/17 03:42 Consult Physician Routine Consulting Provider: Bernarda Perez Consult Reason/Comments: Routine H & P and follow up Do you want consulting provider notified?: Yes 12/27/17 15:15 Consult Physician Routine Consulting Provider: Maddy Jang Consult Reason/Comments: NMS Do you want consulting provider notified?: Yes Primary care physician: Stated None - Discharge Diagnosis(es) (1) Acute psychosis Patient was transferred due to neuroleptic malignant syndrome to medicine and placed in the ICU Status: Acute (2) Methamphetamine use disorder, moderate Status: Acute Priority: High (3) Methamphetamine-induced psychotic disorder Status: Acute Priority: High Hospital Course: Transferred to the ICU for neuroleptic malignant syndrome Patient Condition at Discharge: Serious Plan - Discharge Summary New Discharge Prescriptions: No Action No Known Home Medications Discharge Medication List No Known Home Medications 12/26/17 [History] Follow up Appointment(s)/Referral(s): None,Stated [Primary Care Provider] - 1-2 days Discharge Disposition: ADMITTED IP TO THIS HOSP
== END 2017-12-27 15:50 | disposition short-term general hospital (02) | DRG 896 ==
LOC: EC 22:23 → 3MHU 12-27 03:30
PROVIDERS: ADMIT Psychiatry & Neurology Psychiatry; ATTEND Psychiatry & Neurology Psychiatry
DX: F15.150 Other stimulant abuse with stimulant-induced psychotic disorder with delusions (principal); G21.0 Malignant neuroleptic syndrome; M62.82 Rhabdomyolysis; N17.9 Acute kidney failure, unspecified; D72.829 Elevated white blood cell count, unspecified; F17.200 Nicotine dependence, unspecified, uncomplicated; G24.9 Dystonia, unspecified; G47.00 Insomnia, unspecified; F12.10 Cannabis abuse, uncomplicated; F15.129 Other stimulant abuse with intoxication, unspecified; R45.850 Homicidal ideations; Z88.0 Allergy status to penicillin
CPT/HCPCS: 80053; 80061; 82075; 82248; 82550; 82553; 83036; 84443; 84484; 85025; 85027; 86141; 96372; 99285

== ENCOUNTER 2017-12-27 14:54 | Inpatient (IN) | payer OTHER ==
[2017-12-27] MEDS ORDERED: ACETAMINOPHEN TAB 325 MG TAB PO PRN (16:20)
[2017-12-27] MEDS ORDERED: NALOXONE 0.4 MG/ML 1 ML VIAL IV PRN (16:20)
[2017-12-27] MEDS ORDERED: LORazepam 2 MG/ML INJ IV PRN (16:24)
--- NOTE | 2017-12-27 16:33 | P.HPIM ---
History of Present Illness H&P Date: 12/27/17 Chief Complaint: Agitation This is a 22-year-old male with past medical history significant for methamphetamine abuse who is currently transferred to the intensive care unit from the psych unit for further evaluation. Patient was originally admitted to the psych unit last night with acute psychosis and methamphetamine intoxication. He was doing fairly well this morning but later in the day and around 1 PM he was noted to be significantly agitated and more psychotic. He was having severe generalized tremor that was constant. He was significantly diaphoretic. Initial lab work showed evidence of rhabdomyolysis and acute kidney injury. Patient remained hemodynamically stable even though he was significantly tachycardic with heart rate up to 150. Patient was given 2 doses of Ativan and was started on IV fluids. He was transferred to the ICU for close monitoring. He remained awake and alert. He is able to protect his airway. There was concern by the psychiatrist about possible neuroleptic malignant syndrome as patient received a one-time dose of Haldol last night. No antipsychotic given today according to nursing staff. Patient only received benzodiazepine today. Review of Systems Review of system: 14 points review of systems were obtained and were negative except to what were mentioned in the HPI. Past Medical History Past Medical History: No Reported History History of Any Multi-Drug Resistant Organisms: None Reported Past Surgical History: Orthopedic Surgery Additional Past Surgical History / Comment(s): right knee Past Anesthesia/Blood Transfusion Reactions: No Reported Reaction Past Psychological History: Unable to Obtain Smoking Status: Current some day smoker Past Alcohol Use History: Occasional Past Drug Use History: Methamphetamine Medications and Allergies Home Medications Medication Instructions Recorded Confirmed Type No Known Home Medications 12/26/17 12/26/17 History Allergies Allergy/AdvReac Type Severity Reaction Status Date / Time amoxicillin [Amoxicillin] Allergy Rash/Hives Verified 12/26/17 22:52 Penicillins Allergy Rash/Hives Verified 12/26/17 22:52 Physical Exam Vitals: Vital Signs Temp Pulse Resp BP Pulse Ox 12/27/17 16:20 97.9 F 129 H 24 144/83 96 Intake and Output 12/27/17 12/27/17 12/27/17 06:59 14:59 22:59 Other: Weight 80.8 kg General: The patient is awake and alert, in no distress Eye: there is normal conjunctiva bilaterally. Neck: The neck is supple, there is no JVD. Cardiovascular: Normal S1-S2, no S3-S4, no murmurs. Respiratory: Lungs clear to auscultation bilaterally Gastrointestinal: Abdomen is soft, nontender Musculoskeletal: There is no pedal edema. Neurological:. Speech is normal. Skin: Skin is warm and dry Assessment and Plan Assessment: 1. Acute psychosis 2. Methamphetamine intoxication/withdrawal 3. Suspected neuroleptic malignant syndrome 4. Acute kidney injury with rhabdomyolysis 5. Severe agitation/generalized tremor Patient was transferred to the ICU for close monitoring. We will continue telemetry monitoring. I would order 12-lead ECG to evaluate QT interval. We will continue aggressive IV fluid hydration with normal saline at 150 mL per hour. Repeat BMP, creatinine kinase and lactic acid ordered. All other antipsychotic were discontinued. Continue IV Ativan as needed for agitation. ICU care and DVT prophylaxis.
[2017-12-27] MEDS: SODIUM CHLORIDE 0.9% 2,000 ML IV SCH (16:41)
[2017-12-27] MEDS: LORazepam 2 MG/ML INJ IV PRN (16:42)
[2017-12-27] MEDS: PANTOPRAZOLE 40 MG/10 ML VIAL IVP SCH (17:25)
[2017-12-27 17:32] LABS: Albumin 4.7 g/dL (3.5-5.0); Potassium 4.5 mmol/L (3.5-5.1); Total Bilirubin 1.6 mg/dL (0.2-1.3); Total Protein 7.8 g/dL (6.3-8.2)
--- NOTE | 2017-12-27 18:01 | P.CNPUL ---
History of Present Illness Consult date: 12/27/17 Chief complaint: Acute psychosis, drug induced History of present illness: A 22-year-old male patient with previous history of methamphetamine abuse, was admitted yesterday to the hospital because of acute psychosis. The patient came into the emergency department because of altered mentation and acute psychosis. This was attributed to drug use. He has had multiple hospitalizations for the same. He has previous history of homicidal ideation and racing thoughts and auditory hallucinations and visual hallucinations. He had agitation and paranoia and the police brought into the emergency department. In the ED, the patient was agitated and paranoid and he attempted to elope from the emergency and he was given IM Ativan and Geodon and following that he was admitted to the psych unit. This admission was involuntarily. He was evaluated by psychiatry. Apparently was sedated, the evaluation and unable to participate with the assessment. His urine toxin was positive for a combination of amphetamine, methamphetamine and marijuana. This afternoon, the patient was increasingly agitated, sweaty, tremulous, and diaphoretic. Blood work was repeated and showed a component of rhabdomyolysis with acute kidney injury. The patient was hemodynamically stable however he was quite tachycardic with a heart rate of 150. The patient was given Haldol 2 dose of Ativan and he was given also IV fluids and he was also given Haldol a total of 10 mg and the patient was still unchanged and for that reason he got transferred to the intensive care unit for further monitoring. He remained alert and awake and he was able to protect his airway. Adequate time of his ICU arrival, he was awake and alert and orientated 3. He was much more rested although is still shaky yet his overall mentation is improved considerably. Hemodynamically, his heart rate is down to 123. His pulse ox is 95% on room air. Blood pressures under good control. The patient has been in the hospital in November 2018 for the same presentation. No nausea or depression. Most of anxiety. No history of any suicide Review of Systems All systems: negative (All the positive findings are all mentioned with history of present illness. Please refer to the psychiatric note regarding his previous psych history. From a medical standpoint, there has been no other problems or long-term illnesses.) Past Medical History Past Medical History: No Reported History History of Any Multi-Drug Resistant Organisms: None Reported Past Surgical History: Orthopedic Surgery Additional Past Surgical History / Comment(s): right knee Past Anesthesia/Blood Transfusion Reactions: No Reported Reaction Past Psychological History: Unable to Obtain Smoking Status: Current some day smoker Past Alcohol Use History: Occasional Past Drug Use History: Methamphetamine Medications and Allergies Home Medications Medication Instructions Recorded Confirmed Type No Known Home Medications 12/26/17 12/26/17 History Allergies Allergy/AdvReac Type Severity Reaction Status Date / Time amoxicillin [Amoxicillin] Allergy Rash/Hives Verified 12/26/17 22:52 Penicillins Allergy Rash/Hives Verified 12/26/17 22:52 Physical Exam Vitals: Vital Signs Temp Pulse Pulse Resp BP BP Pulse Ox 12/27/17 17:21 123 H 13 126/84 95 12/27/17 16:20 97.9 F 129 H 24 144/83 96 Intake and Output 12/27/17 12/27/17 12/27/17 06:59 14:59 22:59 Intake Total 150 Output Total 0 Balance 150 Intake: Intake, IV Titration 150 Amount Sodium Chloride 0.9% 2, 150 000 ml @ 150 mls/hr IV . [id number] [facility] Rx#:[id number] Output: Urine 0 Other: Weight 80.8 kg Gen. appearance awake and alert, very restless in bed and less diaphoretic and sweaty. Head exam was generally normal. There was no scleral icterus or corneal arcus. Mucous membranes were moist. Neck was supple and without jugular venous distension, thyromegaly, or carotid bruits. Carotids were easily palpable bilaterally. There was no adenopathy. Lungs were clear to auscultation and percussion, and with normal diaphragmatic excursion. No wheezes or rales were noted. Heart sounds are tachycardic positive S1 and S2 regular no cervical murmurs appreciated. Abdomen abdomen Abdominal exam revealed normal bowel sounds. The abdomen was soft, non-tender, and without masses, organomegaly, or appreciable enlargement of the abdominal aorta. Examination of the skin revealed no evidence of significant rashes, suspicious appearing nevi or other concerning lesions. Examination of the extremities revealed easily palpable radial, femoral and pedal pulses. There was no cyanosis, clubbing or edema. Neurologically moving all 4 extremities without limitation Psychiatric examination please refer to the psych note Assessment and Plan Plan: Acute 1 methamphetamine induced psychotic disorder in a patient with known history of methamphetamine abuse 2 acute autonomic reaction, likely secondary to methamphetamine use, as the patient had increased tremors, tachycardia, hypertensive lability 3 acute tachycardia secondary to above 4 acute rhabdomyolysis secondary to above 5 acute kidney injury secondary to above 6 previous hospitalization for acute psychosis related to methamphetamine and please refer to the psychiatric given the patient was done in November 2017 7 marijuana abuse Plan I saw this patient in the intensive care unit. I evaluated him. He does not have any muscle rigidity. He is afebrile for now. I think it's very unlikely that the patient has neuroleptic malignant syndrome. He is either having amphetamine induced psychosis or withdrawal. He is hallucinating. He is having obvious visual hallucination. He has resting tremors. He is more calm. He is tachycardic. He has tremors. His mentation is cloudy. He has a mild degree of rhabdomyolysis. Her be hydrated with IV fluids. He is afebrile for now. We'll ask psychiatry to follow-up on this patient. We'll keep this patient in ICU. We will also need a 24-hour sitter at the bedside.
--- NOTE | 2017-12-27 18:27 | XR ---
EXAMINATION TYPE: XR chest 1V portable DATE OF EXAM: 12/27/2017 COMPARISON: 09/07/2017 HISTORY: Aspiration. Altered mental status. TECHNIQUE: Single frontal view of the chest is obtained. FINDINGS: There is no focal air space opacity, pleural effusion, or pneumothorax seen. The cardiac silhouette size is within normal limits. The osseous structures are intact. Slight right hemidiaphr agm elevation is exaggerated by patient positioning. IMPRESSION: No acute cardiopulmonary process. No radiographic evidence of aspiration pneumonia.
[2017-12-27 18:40] VITALS: BMI 24.1
[2017-12-27] MEDS: HEPARIN SODIUM,PORCINE 5,000 UNIT/ML 1 ML VIAL SQ SCH (23:17)
[2017-12-28 04:24] LABS: Basophils % (A) 0 %; Eosinophils # (A) 0.1 k/uL (0-0.7); Eosinophils % (A) 1 %; HCT 44.2 % (39.0-53.0); HGB 14.4 gm/dL (13.0-17.5); Lymphocytes # (A) 3.1 k/uL (1.0-4.8); Lymphocytes % (A) 48 %; MCH 28.7 pg (25.0-35.0); MCHC 32.6 g/dL (31.0-37.0); MCV 88.1 fL (80.0-100.0); Mean Platelet Volume 7.8; Monocytes # (A) 0.5 k/uL (0-1.0); Monocytes % (A) 7 %; Neutrophils # (A) 2.8 k/uL (1.3-7.7); Neutrophils % (A) 42 %; Platelet Count 179 k/uL (150-450); RBC 5.02 m/uL (4.30-5.90); RDW 12.8 % (11.5-15.5); WBC 6.6 k/uL (3.8-10.6)
[2017-12-28 04:40] LABS: ALT 37 U/L (21-72); AST 82 U/L (17-59); Albumin 4.1 g/dL (3.5-5.0); Alkaline Phosphatase 54 U/L (38-126); Anion Gap 6 mmol/L; Blood Urea Nitrogen 20 mg/dL (9-20); Calcium 9.2 mg/dL (8.4-10.2); Carbon Dioxide 27 mmol/L (22-30); Chloride 108 mmol/L (98-107); Glucose 87 mg/dL (74-99); Magnesium 2.3 mg/dL (1.6-2.3); Phosphorus 4.3 mg/dL (2.5-4.5); Potassium 4.5 mmol/L (3.5-5.1); Sodium 141 mmol/L (137-145); Total Bilirubin 1.5 mg/dL (0.2-1.3); Total Protein 6.7 g/dL (6.3-8.2)
[2017-12-28 04:56] LABS: Creatine Kinase 2512 U/L (55-170)
[2017-12-28] MEDS: SODIUM CHLORIDE 0.9% 2,000 ML IV SCH ×2 (05:26→19:55)
[2017-12-28] MEDS: LORazepam 2 MG/ML INJ IV PRN ×3 (05:27→22:14)
[2017-12-28] MEDS: PANTOPRAZOLE 40 MG/10 ML VIAL IVP SCH (08:14)
[2017-12-28] MEDS: HEPARIN SODIUM,PORCINE 5,000 UNIT/ML 1 ML VIAL SQ SCH ×2 (08:15→15:59)
--- NOTE | 2017-12-28 12:27 | P.PN ---
Subjective Progress Note Date: 12/28/17 Patient is doing a lot better today. The shakiness has completely resolved. A sitter told me that he is speaking normally today where his speech was not clear yesterday. No acute events overnight reported by nursing staff. Objective - Vital Signs Vital signs: Vital Signs Temp 98.5 F 12/28/17 08:00 Pulse 61 12/28/17 11:00 Resp 10 L 12/28/17 11:00 BP 126/58 12/28/17 11:00 Pulse Ox 97 12/28/17 11:00 Intake & Output 12/27/17 12/28/17 12/28/17 18:59 06:59 18:59 Intake Total 300 1650 750 Output Total 350 0 0 Balance -50 1650 750 Weight 80.8 kg 79 kg Intake: IV 150 1650 750 Sodium Chloride 0.9% 2, 150 1650 750 000 ml @ 150 mls/hr IV . [id number] [facility] Rx#:[id number] Intake, IV Titration 150 Amount Sodium Chloride 0.9% 2, 150 000 ml @ 150 mls/hr IV . [id number] [facility] Rx#:[id number] Output: Urine 350 0 0 Other: Voiding Method Urinal Urinal Toilet Urinal # Voids 1 1 # Bowel Movements 1 - Exam General: The patient is awake and alert, in no distress, and does not appear acutely ill. Eye: extra-ocular movements are intact; there is normal conjunctiva bilaterally. . Neck: The neck is supple, there is no tenderness or JVD. Cardiovascular: Normal S1-S2, no S3-S4, no murmurs. Respiratory: Lungs clear to auscultation bilaterally with no wheezes rhonchi or rales. Gastrointestinal: Abdomen is soft, nontender, nondistended, with no organomegaly. . Musculoskeletal: Normal ROM, no tenderness, There is no pedal edema. Neurological: There are no obvious motor or sensory deficits. Speech is normal. Skin: Skin is warm and dry and no rashes or lesions are noted. - Labs CBC & Chem 7: 12/28/17 04:01 12/28/17 04:01 Labs: Abnormal Lab Results - Last 24 Hours (Table) 12/27/17 12/28/17 Range/Units 16:52 04:01 Chloride 108 H 108 H (98-107) mmol/L Carbon Dioxide 20 L (22-30) mmol/L BUN 27 H (9-20) mg/dL Creatinine 1.31 H (0.66-1.25) mg/dL Total Bilirubin 1.6 H 1.5 H (0.2-1.3) mg/dL AST 94 H 82 H (17-59) U/L Creatine Kinase 4143 H* 2512 H* (55-170) U/L Assessment and Plan Assessment: 1. Methamphetamine intoxication/withdrawal 2. Acute psychosis, resolved 3. Suspected neuroleptic malignant syndrome, ruled out. no documented fever. Patient improved significantly 4. Acute kidney injury with rhabdomyolysis: Improving with IV fluid hydration. Kidney function back to normal. 5. Severe agitation/generalized tremor, now resolved. Patient was seen and evaluated today. His overall condition improved significantly. Lab work is trending down. I would change IV fluids from normal saline at 115 and per hour to 75 mL per hour. Continue telemetry monitoring. Repeat lab work in the morning. Reconsult psychiatry to transfer the patient back to the psych unit. Continue sitter at bedside.
--- NOTE | 2017-12-28 13:39 | P.PN ---
Subjective Progress Note Date: 12/28/17 A 22-year-old male patient with previous history of methamphetamine abuse, was admitted yesterday to the hospital because of acute psychosis. The patient came into the emergency department because of altered mentation and acute psychosis. This was attributed to drug use. He has had multiple hospitalizations for the same. He has previous history of homicidal ideation and racing thoughts and auditory hallucinations and visual hallucinations. He had agitation and paranoia and the police brought into the emergency department. In the ED, the patient was agitated and paranoid and he attempted to elope from the emergency and he was given IM Ativan and Geodon and following that he was admitted to the psych unit. This admission was involuntarily. He was evaluated by psychiatry. Apparently was sedated, the evaluation and unable to participate with the assessment. His urine toxin was positive for a combination of amphetamine, methamphetamine and marijuana. This afternoon, the patient was increasingly agitated, sweaty, tremulous, and diaphoretic. Blood work was repeated and showed a component of rhabdomyolysis with acute kidney injury. The patient was hemodynamically stable however he was quite tachycardic with a heart rate of 150. The patient was given Haldol 2 dose of Ativan and he was given also IV fluids and he was also given Haldol a total of 10 mg and the patient was still unchanged and for that reason he got transferred to the intensive care unit for further monitoring. He remained alert and awake and he was able to protect his airway. Adequate time of his ICU arrival, he was awake and alert and orientated 3. He was much more rested although is still shaky yet his overall mentation is improved considerably. Hemodynamically, his heart rate is down to 123. His pulse ox is 95% on room air. Blood pressures under good control. The patient has been in the hospital in November 2018 for the same presentation. No nausea or depression. Most of anxiety. No history of any suicide On today's evaluation of 12/28/2017, the patient is recovering from his acute methamphetamine/amphetamine reaction/psychotic reaction. The patient is resting comfortably in bed. This episode the bedside. His speech is improved. No tremors. No agitation. No restlessness. He is on of sleeping and he was awake during the day and had his full breakfast without any major difficulties. He is alert and oriented. His abdomen is improving and is typically is on the decline. Renal function is also improved. No fever or chills. No muscle stiffness. Normal white cell count. No other significant events overnight. No seizure activity. Objective - Vital Signs Vital signs: Vital Signs Temp 98.5 F 12/28/17 08:00 Pulse 61 12/28/17 11:00 Resp 10 L 12/28/17 11:00 BP 126/58 12/28/17 11:00 Pulse Ox 97 12/28/17 11:00 Intake & Output 12/27/17 12/28/17 12/28/17 18:59 06:59 18:59 Intake Total 300 1650 900 Output Total 350 0 0 Balance -50 1650 900 Weight 80.8 kg 79 kg Intake: IV 150 1650 900 Sodium Chloride 0.9% 2, 150 1650 900 000 ml @ 75 mls/hr IV . [facility] Rx#:[id number] Intake, IV Titration 150 Amount Sodium Chloride 0.9% 2, 150 000 ml @ 75 mls/hr IV . [facility] Rx#:[id number] Output: Urine 350 0 0 Other: Voiding Method Urinal Urinal Toilet Urinal # Voids 1 1 # Bowel Movements 1 - Exam General: The patient is awake and alert, in no distress, and does not appear acutely ill. Eye: extra-ocular movements are intact; there is normal conjunctiva bilaterally. . Neck: The neck is supple, there is no tenderness or JVD. Cardiovascular: Normal S1-S2, no S3-S4, no murmurs. Respiratory: Lungs clear to auscultation bilaterally with no wheezes rhonchi or rales. Gastrointestinal: Abdomen is soft, nontender, nondistended, with no organomegaly. . Musculoskeletal: Normal ROM, no tenderness, There is no pedal edema. Neurological: There are no obvious motor or sensory deficits. Speech is normal. Skin: Skin is warm and dry and no rashes or lesions are noted. - Labs CBC & Chem 7: 12/28/17 04:01 12/28/17 04:01 Labs: Abnormal Lab Results - Last 24 Hours (Table) 12/27/17 12/28/17 Range/Units 16:52 04:01 Chloride 108 H 108 H (98-107) mmol/L Carbon Dioxide 20 L (22-30) mmol/L BUN 27 H (9-20) mg/dL Creatinine 1.31 H (0.66-1.25) mg/dL Total Bilirubin 1.6 H 1.5 H (0.2-1.3) mg/dL AST 94 H 82 H (17-59) U/L Creatine Kinase 4143 H* 2512 H* (55-170) U/L Assessment and Plan Plan: Acute 1 methamphetamine induced psychotic disorder in a patient with known history of methamphetamine abuse 2 acute autonomic reaction, likely secondary to methamphetamine use, as the patient had increased tremors, tachycardia, hypertensive lability, and the patient is recovering extremely is hemodynamically stable 3 acute tachycardia secondary to above, improving 4 acute rhabdomyolysis secondary to above, improving 5 acute kidney injury secondary to above, improving 6 previous hospitalization for acute psychosis related to methamphetamine and please refer to the psychiatric given the patient was done in November 2017 7 marijuana abuse Plan Continue IV fluids. Monitor mentation. Keep the sats are in place. Ask psych catheter evaluated this patient in consultation ongoing rectal psych floor at a later stage. We'll continue to follow.
[2017-12-28 14:40] VITALS: TEMP 97.9
[2017-12-28 21:07] VITALS: BP 139/91; RESP 12
[2017-12-29] MEDS: HEPARIN SODIUM,PORCINE 5,000 UNIT/ML 1 ML VIAL SQ SCH (00:40)
[2017-12-29 00:47] VITALS: PULSE 115
[2017-12-29 07:43] LABS: Glucose,Whole Blood 97 mg/dL (75-99)
--- NOTE | 2017-12-29 12:25 | P.PN ---
Subjective Progress Note Date: 12/29/17 Principal diagnosis: Methamphetamine induced psychosis A 22-year-old male patient with previous history of methamphetamine abuse, was admitted yesterday to the hospital because of acute psychosis. The patient came into the emergency department because of altered mentation and acute psychosis. This was attributed to drug use. He has had multiple hospitalizations for the same. He has previous history of homicidal ideation and racing thoughts and auditory hallucinations and visual hallucinations. He had agitation and paranoia and the police brought into the emergency department. In the ED, the patient was agitated and paranoid and he attempted to elope from the emergency and he was given IM Ativan and Geodon and following that he was admitted to the psych unit. This admission was involuntarily. He was evaluated by psychiatry. Apparently was sedated, the evaluation and unable to participate with the assessment. His urine toxin was positive for a combination of amphetamine, methamphetamine and marijuana. This afternoon, the patient was increasingly agitated, sweaty, tremulous, and diaphoretic. Blood work was repeated and showed a component of rhabdomyolysis with acute kidney injury. The patient was hemodynamically stable however he was quite tachycardic with a heart rate of 150. The patient was given Haldol 2 dose of Ativan and he was given also IV fluids and he was also given Haldol a total of 10 mg and the patient was still unchanged and for that reason he got transferred to the intensive care unit for further monitoring. He remained alert and awake and he was able to protect his airway. Adequate time of his ICU arrival, he was awake and alert and orientated 3. He was much more rested although is still shaky yet his overall mentation is improved considerably. Hemodynamically, his heart rate is down to 123. His pulse ox is 95% on room air. Blood pressures under good control. The patient has been in the hospital in November 2018 for the same presentation. No nausea or depression. Most of anxiety. No history of any suicide On today's evaluation of 12/28/2017, the patient is recovering from his acute methamphetamine/amphetamine reaction/psychotic reaction. The patient is resting comfortably in bed. This episode the bedside. His speech is improved. No tremors. No agitation. No restlessness. He is on of sleeping and he was awake during the day and had his full breakfast without any major difficulties. He is alert and oriented. His abdomen is improving and is typically is on the decline. Renal function is also improved. No fever or chills. No muscle stiffness. Normal white cell count. No other significant events overnight. No seizure activity. Patient was reevaluated today on 12/29/2017, remains in the intensive care unit , however awaiting psychiatric evaluation, and possibly either clearing for discharge or possibly transferred to the psychiatric floor. Medically the patient is doing much better, she is asymptomatic, his CBC was normal basic metabolic profile was normal renal profile is normal CPK remains a bit elevated , but it is significantly improved compared to the last 2 days. Patient is hemodynamically stable, denies any headache no blurred vision no dizziness no nausea no vomiting no abdominal pain and no shortness of breath. Objective - Vital Signs Vital signs: Vital Signs Temp 97.9 F 12/28/17 16:00 Pulse 97 12/28/17 22:00 Resp 12 12/28/17 22:00 BP 139/91 12/28/17 21:00 Pulse Ox 96 12/28/17 22:00 Intake & Output 12/28/17 12/29/17 12/29/17 18:59 06:59 18:59 Intake Total 1350 1040 Output Total 0 0 Balance 1350 1040 Intake: IV 1350 300 Sodium Chloride 0.9% 2, 1350 300 000 ml @ 75 mls/hr IV . [facility] Rx#:[id number] Oral 740 Output: Urine 0 0 Other: Voiding Method Toilet Toilet Urinal # Voids 1 1 # Bowel Movements 1 - Exam Physical Exam: Revealed a 21-year-old male in no distress. Head: Atraumatic normocephalic. HEENT:[Neck is supple.] [No neck masses.] [No thyromegaly.] [No JVD.] Chest: [Clear throughout, no crackles, no rhonchi, no wheezes.] Cardiac Exam: [Normal S1 and S2, no S3 gallop, no murmur.] Abdomen: [Soft, nontender, no megaly, no rebound, no guarding, normal bowel sounds.] Extremities: [No clubbing, no edema, no cyanosis.] Neurological Exam: [No focal neurologic deficit.] Psychiatric: Normal mood affect and mental status examination. Skin: No rashes. - Labs CBC & Chem 7: 12/28/17 04:01 11/18/18 04:01 Assessment and Plan Assessment: Impression: Acute psychotic disorder secondary to methamphetamine. Acute tachycardia, again secondary to methamphetamine. Acute kidney injury secondary to above, resolved. Acute rhabdomyolysis secondary to above improving. History of marijuana abuse. Recommendation: Continue present treatment plan, encourage oral fluid intake, awaiting psychiatric evaluation, patient could be transferred out of the ICU to a medical floor for now unless psychiatry feels that he needs to be admitted to psychiatry. Otherwise if cleared to go home that will be a decision to be made by the admitting physician and psychiatry. We will see the patient on when necessary basis. Time with Patient: Less than 30
--- NOTE | 2017-12-29 14:05 | P.CN ---
Psychiatric Consult - . Consult date: 12/29/17 Consult:: 12/29/17 14:02 psychosis Assessment and Plan (1) Withdrawal syndrome Narrative/Plan: This is a 22-year-old male the ER for evaluation of altered mental status, patient is acutely psychotic, does have history of drug abuse. Patient has multiple recent hospital admissions for same symptoms, pedis methamphetamine use. Prior hospitalizations for psychiatric illness and then was transferred to medicine in ICU for stabilization. He should be transferred back today to psychiatry if he is medically stable. HISTORY OF PRESENT ILLNESS: Due to his agitation and paranoia the police brought him to the emergency room. In the emergency room he was agitated and paranoid. He attempted to elope from the emergency room and his management required intramuscular Ativan and Geodon. He presented to unit involuntarily. He was markedly sedated and unable to participate in an assessment. He was laying in bed and would open his eyes briefly when we shook him awake. According to information from medical record he has a history of methamphetamine use disorder. His urine drug screen was positive for amphetamines, methamphetamines and marijuana. PAST PSYCHIATRIC HISTORY: This is second admission to our psychiatric unit; the last was in August 2017. He presented with acute onset of paranoia and agitation in the context of abuse of methamphetamine. That admission was involuntary and he deferred the probate hearing. 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 No psychotropic medications were prescribed at discharge. Mental Status Examination - General Appearance: [disheveled, bizarre, appears stated age Speech/Language: [ slow, slurred, rambled, mumbling, hesitant, halting, monotone , soft] Attitude/Behavior: [guarded, irritable, withdrawn, indifferent, ] Mood: [depressed anxious, elated, fearful, hopelessness, other] Affect: [flat, incongruent, labile, blunted constricted, other] Orientation: [not time, person, place situation] Thought Content: [ delusions Risk Factors: [denies suicidal (ideations, plan), and/or Homicidal (ideations, plan), other] Perception: [hallucinations (auditory Thought Processes: [circumstantial, tangential] Concentration/Attention Span: [ impaired] [Per observation and interview with the patient] Recent Memory: [impaired] [0 out of 3 in 3 minutes] Remote Memory: [ impaired] [past events, as related history] Intelligence: [below average] [based on history, based on vocabulary, syntax, grammar, and content] Judgement: [ poor] [per patient's behavior/history of present illness] Insight: [poor] [understanding severity of illness/history of present illness] Admitting Diagnosis: [Amphetamine induced psychosis] Patient Strengths - Able to vocalize needs: [x] Motivation, determination, readiness for change: [x] Patient Limitations: [medication, non-compliance, pathological/unsupported environment, intellectual impairment Initial Plan of Care: [He will be transferred from medical and admitted to the [address] for acute psychosis. He will be evaluated by medicine, psychiatry, social work, nursing staff and recreational therapy. He'll be integrated in [facility] therapeutic environment and 15 minute checks will be done on a routine basis for his safety.] Current Visit: Yes Status: Acute Priority: High Code(s): F19.939 - OTHER PSYCHOACTIVE SUBSTANCE USE, UNSP WITH WITHDRAWAL, UNSP SNOMED Code(s): 982669381 (2) Acute psychosis Current Visit: No Status: Acute Priority: High Code(s): F23 - BRIEF PSYCHOTIC DISORDER SNOMED Code(s): 66158166 (3) Methamphetamine intoxication Current Visit: No Status: Acute Priority: High Code(s): F15.929 - OTHER STIMULANT USE, UNSP WITH INTOXICATION, UNSPECIFIED SNOMED Code(s): 96585227437452021 Time with Patient: Less than 30
--- NOTE | 2017-12-29 14:06 | P.DS ---
Providers Date of admission: 12/27/17 16:03 Expected date of discharge: 12/29/17 Attending physician: Cely Chacon Consults: 12/27/17 16:20 Consult Physician Stat Consulting Provider: Maddy Jang Consult Reason/Comments: ICU care Do you want consulting provider notified?: Yes Placement Type Exists?: Yes 12/28/17 13:17 Consult Physician Routine Consulting Provider: Leandro Horner Consult Reason/Comments: psychosis vs withdrawl Do you want consulting provider notified?: Already Contacted Primary care physician: [facility] Hospital Course: This is a 22-year-old male with past medical history significant for methamphetamine abuse who presented to the psych unit or rigidity and was subsequently transferred to the medical intensive care unit with worsening agitation and sign of methamphetamine withdrawal. Patient was treated aggressively. He was found to have acute kidney injury with mild rhabdomyolysis. He was treated with benzodiazepine and IV fluids. His tachycardia improved significantly as well as his lab work. There was no documented fever. Patient's overall condition significantly improved medically. Patient was seen by psychiatry and plan is to transfer back to the psych unit for further evaluation. Patient refused blood work this morning and he told me that he was feeling a lot better and does not want to be poked again. He would be transferred in a stable medical condition to the psych unit. Plan - Discharge Summary New Discharge Prescriptions: No Action No Known Home Medications Discharge Medication List No Known Home Medications 12/26/17 [History] Discharge Disposition: TRANSFER TO PSYCH HOSP/UNIT
== END 2017-12-29 16:21 | DRG 897 ==
LOC: 2SICU 16:03
PROVIDERS: ADMIT Internal Medicine; ATTEND Internal Medicine
DX: F15.93 Other stimulant use, unspecified with withdrawal (principal); N17.9 Acute kidney failure, unspecified; M62.82 Rhabdomyolysis; R44.0 Auditory hallucinations; F15.159 Other stimulant abuse with stimulant-induced psychotic disorder, unspecified; F15.129 Other stimulant abuse with intoxication, unspecified; F41.9 Anxiety disorder, unspecified; F17.200 Nicotine dependence, unspecified, uncomplicated; R25.1 Tremor, unspecified; R44.1 Visual hallucinations; Z79.899 Other long term (current) drug therapy; Z88.0 Allergy status to penicillin
CPT/HCPCS: 71045; 80053; 82550; 83605; 83735; 84100; 85025; 93005

== ENCOUNTER 2017-12-29 15:49 | Inpatient (IN) | payer MEDICAID ==
[2017-12-29 16:43] VITALS: RESP 16; BMI 24.7
[2017-12-29] MEDS ORDERED: MAG HYDROX/AL HYDROX/SIMETH 30 ML CUP PO PRN (21:09)
[2017-12-29] MEDS ORDERED: MAGNESIUM HYDROXIDE 2,400 MG/10 ML CUP PO PRN (21:09)
[2017-12-29] MEDS ORDERED: LORazepam 2 MG/ML INJ IM PRN (21:14)
[2017-12-29] MEDS: ACETAMINOPHEN TAB 325 MG TAB PO PRN (21:35)
[2017-12-29] MEDS: NICOTINE 14MG/24HR PATCH TRANSDERM SCH (21:48)
[2017-12-30] MEDS: NICOTINE 14MG/24HR PATCH TRANSDERM SCH ×2 (08:11→10:53)
--- NOTE | 2017-12-30 08:19 | P.CONS ---
History of Present Illness - Reason for Consult Consult date: 12/30/17 Medical management - Chief Complaint Acute psychosis - History of Present Illness This is a 22-year-old male with past medical history significant for methamphetamine abuse who presented to the emergency room originally with acute psychosis and was placed in the psychiatry unit. Subsequently, patient was noted to have severe agitation with diffuse diaphoresis and was noted to be in methamphetamine intoxication with evidence of acute kidney failure and rhabdomyolysis. Patient was transferred to the ICU and was treated with aggressive IV fluid hydration and benzodiazepine. Patient's overall condition improved significantly and his lab work and kidney function has normalized. He was transferred back to the psych unit last night. He is doing fairly well today. He does not have any complain at this time. I was asked to see him for medical management. Review of Systems Review of system: 14 points review of systems were obtained and were negative except to what were mentioned in the HPI. Past Medical History Past Medical History: No Reported History History of Any Multi-Drug Resistant Organisms: None Reported Past Surgical History: Orthopedic Surgery Additional Past Surgical History / Comment(s): right knee Past Anesthesia/Blood Transfusion Reactions: No Reported Reaction Smoking Status: Current some day smoker Medications and Allergies Home Medications Medication Instructions Recorded Confirmed Type No Known Home Medications 12/26/17 12/29/17 History Allergies Allergy/AdvReac Type Severity Reaction Status Date / Time amoxicillin [Amoxicillin] Allergy Rash/Hives Verified 12/29/17 17:31 Penicillins Allergy Rash/Hives Verified 12/29/17 17:31 Physical Exam Vitals: Vital Signs Temp Pulse Resp BP 12/30/17 06:31 97.3 F L 73 16 131/60 12/29/17 16:33 98.3 F 83 16 140/76 Intake and Output 12/29/17 12/30/17 12/30/17 22:59 06:59 14:59 Other: Weight 82.582 kg General: The patient is awake and alert, in no distress Eye: there is normal conjunctiva bilaterally. Neck: The neck is supple, there is no JVD. Cardiovascular: Normal S1-S2, no S3-S4, no murmurs. Respiratory: Lungs clear to auscultation bilaterally Gastrointestinal: Abdomen is soft, nontender Musculoskeletal: There is no pedal edema. Neurological:. Speech is normal. Skin: Skin is warm and dry Assessment and Plan Assessment: 1. Methamphetamine abuse 2. Acute psychosis on presentation now resolved 3. Methamphetamine intoxication/withdrawal 4. Acute kidney failure, rhabdomyolysis, and acute agitation, all resolved Today, I reviewed his medication list. Continue current regimen. Management per psychiatry. We will continue to follow up on him on as-needed basis.
[2017-12-30] MEDS ORDERED: NICOTINE 14MG/24HR PATCH TRANSDERM SCH (09:00)
--- NOTE | 2017-12-30 11:43 | P.HP ---
Psychiatric H&P - . H&P Date: 12/30/17 History & Physical: Allergies Allergy/AdvReac Type Severity Reaction Status Date / Time amoxicillin [Amoxicillin] Allergy Rash/Hives Verified 12/29/17 17:31 Penicillins Allergy Rash/Hives Verified 12/29/17 17:31 Vital Signs Temp 97.3 F L 12/30/17 06:31 Pulse 73 12/30/17 06:31 Resp 16 12/30/17 06:31 BP 131/60 12/30/17 06:31 Pulse Ox Intake & Output 12/29/17 12/30/17 12/30/17 18:59 06:59 18:59 Weight 82.582 kg Assessment and Plan Assessment: Narrative/Plan: This is a 22-year-old male the ER for evaluation of altered mental status, patient is acutely psychotic, does have history of drug abuse. Patient has multiple recent hospital admissions for same symptoms, methamphetamine use. Prior hospitalizations for psychiatric illness. He is transferred back to [facility] after being in ICU for medical stabilization. MD Complaint: altered mental status -: unknown Associated Psychiatric Symptoms: homicidal ideation, racing thoughts, auditory hallucinations, visual hallucinations History of same: Yes Quality: intermittent Improves With: medication Worsens With: medication Context: recent drug abuse, not taking psychiatric medications, new medication(s ) Associated Symptoms: insomnia HISTORY OF PRESENT ILLNESS: Due to his agitation and paranoia the police brought him to the emergency room. In the emergency room he was agitated and paranoid. He attempted to elope from the emergency room and his management required intramuscular Ativan and Geodon. He presented to unit involuntarily. He was markedly sedated and unable to participate in an assessment. He was laying in bed and would open his eyes briefly when we shook him awake. According to information from medical record he has a history of methamphetamine use disorder. His urine drug screen was positive for amphetamines, methamphetamines and marijuana. PAST PSYCHIATRIC HISTORY: This is second admission to our psychiatric unit; the last was in August 2017. He presented with acute onset of paranoia and agitation in the context of abuse of methamphetamine. That admission was involuntary and he deferred the probate hearing. 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 No psychotropic medications were prescribed at discharge. Past Medical History Past Medical History: No Reported History History of Any Multi-Drug Resistant Organisms: None Reported Past Surgical History: Orthopedic Surgery Additional Past Surgical History / Comment(s): right knee Past Anesthesia/Blood Transfusion Reactions: No Reported Reaction Past Psychological History: Unable to Obtain Smoking Status: Current some day smoker Past Alcohol Use History: Occasional Past Drug Use History: Methamphetamine ALLERGIES: Amoxicillin, penicillins. SUBSTANCE USE HISTORY: According to information from the prior admission he has a history of marijuana use since she he was 11 years old. He alleged that he used methamphetamine twice prior to the last admission. FAMILY PSYCHIATRIC/SUBSTANCE USE HISTORY: There is no family history of mental health disorders. LEGAL HISTORY: He was in correction in August 2016 for charges of domestic assault. SOCIAL HISTORY: His born in [place] and raised by his grandparents. His mother is in long term. He denied a history of childhood abuse. He has 5 sisters and 2 brothers. He graduated from high school. He lived in [place] until December 2016 to be closer to his daughter. Musculoskeletal Examination - Abnormal/Involuntary Movements: [ tremors, spasm] Strength: [greater than antigravity (greater than/equal to 3/5) in all extremities, weakness:] Muscle Tone: [dystonia, ] Gait: [grossly normal] Station: [ unsteady] Mental Status Examination - General Appearance: [disheveled, bizarre, appears stated age Speech/Language: [ slow, slurred, rambled, mumbling, hesitant, halting, monotone , soft] Attitude/Behavior: [guarded, irritable, withdrawn, indifferent, ] Mood: [depressed anxious, elated, fearful, hopelessness, other] Affect: [flat, incongruent, labile, blunted constricted, other] Orientation: [not time, person, place situation] Thought Content: [ delusions Risk Factors: [denies suicidal (ideations, plan), and/or Homicidal (ideations, plan), other] Perception: [hallucinations (auditory Thought Processes: [circumstantial, tangential] Concentration/Attention Span: [ impaired] [Per observation and interview with the patient] Recent Memory: [impaired] [0 out of 3 in 3 minutes] Remote Memory: [ impaired] [past events, as related history] Intelligence: [below average] [based on history, based on vocabulary, syntax, grammar, and content] Judgement: [ poor] [per patient's behavior/history of present illness] Insight: [poor] [understanding severity of illness/history of present illness] Admitting Diagnosis: [Amphetamine induced psychosis] Patient Strengths - Able to vocalize needs: [x] Motivation, determination, readiness for change: [x] Patient Limitations: [medication, non-compliance, pathological/unsupported environment, intellectual impairment Initial Plan of Care: [He will be admitted to the [address] for acute psychosis and detox from amphetamine misuse. He will be evaluated by medicine, psychiatry, social work, nursing staff and recreational therapy. He'll be integrated in [facility] therapeutic environment and 15 minute checks will be done on a routine basis for his safety.] Estimated Length of Stay: [5 days] Initial Discharge Plan: [facility]home, [facility], referred to therapist Prognosis: [ guarded] Justification for Inpatient Hospitalization - [Hallucinations, delusions, agitation, anxiety, depression resulting in significant loss of functioning.] [Dangerous to self, others, or property with need for controlled environment.] [Emotional or behavioral conditions and complications requiring 24 hour medical and nursing care.] [Need for special drug therapy, or other therapeutic program requiring continuous hospitalization.] [Failure of social or occupational functioning.] [Inability to meet basic life and health needs.] [Legally mandated admission.] [Recovery environment includes detrimental family structure, logical impediments to out-patient treatment.] [High relapse potential due to inability to control substance use.] [Needs treatment for acute intoxication or withdrawal.] [Failure of treatment at a lower level of care.] Current Visit: Yes Status: Acute Code(s): F23 - BRIEF PSYCHOTIC DISORDER SNOMED Code(s): 72939484 (2) Methamphetamine use disorder, moderate Current Visit: No Status: Acute Priority: High Code(s): F15.20 - OTHER STIMULANT DEPENDENCE, UNCOMPLICATED SNOMED Code(s): 931751262 (3) Methamphetamine-induced psychotic disorder Narrative/Plan:
[2017-12-30] MEDS: LORazepam 1 MG TAB PO PRN (18:30)
[2017-12-31 03:40] VITALS: BP 127/70; PULSE 85; TEMP 98.1
[2017-12-31] MEDS: LORazepam 1 MG TAB PO PRN (03:40)
[2017-12-31] MEDS: ACETAMINOPHEN TAB 325 MG TAB PO PRN (03:40)
[2017-12-31] MEDS: NICOTINE 14MG/24HR PATCH TRANSDERM SCH (07:59)
--- NOTE | 2017-12-31 09:53 | P.DS ---
Providers Date of admission: 12/29/17 16:22 Expected date of discharge: 12/31/17 Attending physician: Leandro Horner DO Consults: 12/29/17 21:09 Consult Physician Routine Consulting Provider: Bernarda Perez Consult Reason/Comments: medical care Do you want consulting provider notified?: Yes Primary care physician: Cely Chacon - Discharge Diagnosis(es) (1) Acute psychosis This is a 22-year-old male the ER for evaluation of altered mental status, patient is acutely psychotic, does have history of drug abuse. Patient has multiple recent hospital admissions for same symptoms, methamphetamine use. Prior hospitalizations for psychiatric illness. HISTORY OF PRESENT ILLNESS: Due to his agitation and paranoia the police brought him to the emergency room. In the emergency room he was agitated and paranoid. He attempted to elope from the emergency room and his management required intramuscular Ativan and Geodon. He presented to unit involuntarily. He was markedly sedated and unable to participate in an assessment. He was laying in bed and would open his eyes briefly when we shook him awake. According to information from medical record he has a history of methamphetamine use disorder. His urine drug screen was positive for amphetamines, methamphetamines and marijuana. PAST PSYCHIATRIC HISTORY: This is second admission to our psychiatric unit; the last was in August 2017. He presented with acute onset of paranoia and agitation in the context of abuse of methamphetamine. That admission was involuntary and he deferred the probate hearing. 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 No psychotropic medications were prescribed at discharge. Current Visit: No Status: Acute Priority: Low (2) Methamphetamine intoxication Current Visit: No Status: Chronic Priority: Low Hospital Course: Hospital course: He was admitted to the hospital with acute psychosis due to overdose (which he admitted to using) and was merely identified after an injection of haloperidol to develop neuroleptic malignant syndrome. Internal medicine was greatly involved immediately responded with the transfer to intensive care unit whereby he was stabilized with than 36 hours and transferred back to the psychiatric unit. During this period of time and the last 48 hours she is exhibited no psychosis and no delusions and a normal mental status examination. Initially diagnosed with neuroleptic malignant syndrome his white cell comment was elevated BUN and creatinine was elevated white count of protein kinase and 4000 range which required immediate hydration and stabilization. Mental status examination at time of discharge The patient presents alert, pleasant, and cooperative. There calmly seated without any agitated behavior. He reports that [his] mood is good. Affect is congruent and euthymic. [He] deny having any suicidal or homicidal ideation intent or plan. [He] denies any auditory or visual hallucinations. There is no evidence of any delusional thought content. [His] thought process is linear and goal-directed. [His] speech is fluent and nonpressured. [His] memory and concentration is grossly intact for the purposes of this session. He was discharged with no psychiatric medications other than nicotine patch and encouraged him stop chewing tobacco and/or smoking tobacco. He will have a follow-up appointment [facility]. Patient Condition at Discharge: Good Plan - Discharge Summary Discharge Rx Participant: Yes New Discharge Prescriptions: New Nicotine 14Mg/24Hr Patch [Habitrol] 1 patch TRANSDERM DAILY 30 Days #30 patch Discharge Medication List Nicotine 14Mg/24Hr Patch [Habitrol] 1 patch TRANSDERM DAILY 30 Days #30 patch [Rx] Patient Instructions/Handouts: How to Stop Smoking (GEN), Rhabdomyolysis (DC), Methamphetamine Abuse (DC), Psychotic Disorder (DC), Suicide Prevention (GEN) Activity/Diet/Wound Care/Special Instructions: Activity and diet as tolerated. Avoid the use of street drugs and alcohol. Take all medications as prescribed. When you are in need of refills on your medications please contact your medical provider and/or outpatient psychiatrist to have this done. Please go to scheduled outpatient appointment for aftercare treatment. If symptoms return or become worse, call the crisis line at [phone] and/or go to the nearest emergency room for evaluation. Discharge Disposition: HOME SELF-CARE
== END 2017-12-31 11:22 | disposition home or self-care (01) | DRG 885 ==
LOC: 3MHU 16:22
PROVIDERS: ADMIT Psychiatry & Neurology Psychiatry; ATTEND Psychiatry & Neurology Psychiatry
DX: F23 Brief psychotic disorder (principal); M62.82 Rhabdomyolysis; N17.9 Acute kidney failure, unspecified; F17.200 Nicotine dependence, unspecified, uncomplicated; F15.159 Other stimulant abuse with stimulant-induced psychotic disorder, unspecified; Z91.19 Patient's noncompliance with other medical treatment and regimen; R45.850 Homicidal ideations; G47.00 Insomnia, unspecified; Z88.1 Allergy status to other antibiotic agents; Z88.0 Allergy status to penicillin; F12.90 Cannabis use, unspecified, uncomplicated

== ENCOUNTER 2018-03-28 20:17 | Emergency (ER) | payer OTHER ==
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
[2018-03-28 21:38] LABS: Appearance,Urine Clear (Clear); Bilirubin,Urine Negative (Negative); Blood,Urine Negative (Negative); Color,Urine Light Yellow; Glucose,Urine (UA) Negative (Negative); Ketones,Urine Negative (Negative); Leukocyte Esterase,Urine Negative (Negative); Nitrite,Urine Negative (Negative); Protein,Urine Negative (Negative); Specific Gravity,Urine 1.007 (1.001-1.035); Urobilinogen,Urine <2.0 mg/dL (<2.0)
[2018-03-28 21:48] LABS: Amphetamine Screen,Urine Not Detected (NotDetected); Barbiturate Screen,Urine Not Detected (NotDetected); Benzodiazepines Screen,Urine Not Detected (NotDetected); Cocaine Screen,Urine Not Detected (NotDetected); Methadone Screen, Urine Not Detected (NotDetected); Opiate Screen,Urine Not Detected (NotDetected); Oxycodone Screen, Urine Not Detected (NotDetected); Phencyclidine Screen,Urine Not Detected (NotDetected); Tricyclic Antidepressant,Urine Not Detected (NotDetected); Urn Cannabinoid Scrn Detected (NotDetected)
[2018-03-29 01:20] VITALS: BP 124/71; PULSE 54; RESP 16; TEMP 98.4
== END 2018-03-29 01:22 | disposition home or self-care (01) ==
LOC: EC 20:17
DX: Z04.6 Encounter for general psychiatric examination, requested by authority (principal); Z87.891 Personal history of nicotine dependence; Z88.0 Allergy status to penicillin
CPT/HCPCS: 80306; 81003; 82075; 99283